=== PATIENT | female | born 1990 | race Caucasian/White ===

== ENCOUNTER 2021-08-24 16:08 | Outpatient (CLI) | payer OTHER, SELFPAY ==
--- NOTE | ~2021-08-24 | US_ITS ---
EXAMINATION: US OB /maternal detail DATE: 08/24/2021 17:23 INDICATION: screening survey TECHNIQUE: Multiple obstetric sonographic images performed. FINDINGS: No prior studies for comparison. There is a single living fetus in breech presentation. The placenta is posterior without placenta pr evia. Amniotic fluid is subjectively normal. cardiac activity and movement is noted with a heart rate of 129 beats per minute. The following anatomy was identified as normal: 4 chamber heart 3 vessel cord cord insertion kidneys urinary bladder stomach spine diaphragm ventricles cisterna magna cerebellum The following biometric data were obtained: BPD: 45mm corresponds to gestational age 19 weeks 4 days. Head circumference: 170 mm corresponds to gestational age 19 weeks 4 days. Abdominal circumference: 144 mm corresponds to gestational age 19 weeks 5 days. Femur length: 32 mm corresponds to gestational age 19 weeks 6 days. Head circumference to abdominal circumference ratio: 1.18 (normal range for expected gestational age is 1.08-1.26). Estimated weight: 309 grams +/- 46 grams using Hadlock method. IMPRESSION: 1: Single living intrauterine with an estimated gestational age of 19weeks 5days by current ultrasound measurements, with an EDC of 01/13/2022 in breech presentation. 2. Normal survey. Reviewed, dictated and finalized at location A. RUMENTATION ENGINEERING TECHNICIAN IMPRESSION: 1: Single living intrauterine with an estimated gestational age of 19 weeks 5days by current ultrasound measurements, with an EDC of 01/13/2022 in javier ech presentation. 2. Normal survey.
== END 2021-08-24 16:09 | disposition home or self-care (01) ==
LOC: ANHIMG 16:13
PROVIDERS: PCP Family Medicine; Visit Provider Obstetrics & Gynecology
DX: Z36.9 Encounter for antenatal screening, unspecified (principal); Z3A.19 19 weeks gestation of pregnancy
CPT/HCPCS: 76805

== ENCOUNTER 2021-10-30 15:58 | Outpatient (CLI) | payer OTHER, SELFPAY ==
--- NOTE | ~2021-10-30 | US_ITS ---
EXAMINATION: US OB follow up DATE: 10/30/2021 17:28 INDICATION: Obesity in . TECHNIQUE: Real-time ultrasound of the pelvis was performed. COMPARISON: Ultrasound 08/24/2021 FINDINGS: There is a single living fetus in vertex presentation. The placenta is fundal and posterior. h eart rate is 129 beats per minute (bpm). The amniotic fluid index is 11.9 cm, which is normal. The following biometric data were obtained: Biparietal diameter (BPD): 7.6 cm; head circumference (HC): 28.0 cm; abdominal circumference (AC): 26 .1 cm; femur length (FL): 5.7 cm. These measurements are concordant. Estimated weight is 1533 g +/- 230 g, which correlates with the 85th percentile when 01/16/22 is used as estimated date of delivery. As single measurements, these parameters are each equal to the following estimated gestational ages: BPD: 30 weeks 5 days. HC: 30 weeks 5 days. AC: 30 weeks 2 days. FL: 30 weeks 0 days. estimated gestational age based solely on measurements from this exam is 30 weeks 3 days +/- 2 weeks 1 days. IMPRESSION: 1. Single living fetus in vertex presentation. 2. Estimated weight is 1533 g +/- 230 g, which correlates with the 85th percentile when 2 is used as estimated date of delivery. Reviewed, dictated and finalized at location A. IMPRESSION: 1. Single living fetus in vertex presentation. 2. Estimated weight is 1533 g +/- 230 g, which correlates with the 85th percentile when 01/16/22 is used as estimated date of delivery.
== END 2021-10-30 15:59 | disposition home or self-care (01) ==
LOC: ANHIMG 16:07
PROVIDERS: PCP Family Medicine; Visit Provider Obstetrics & Gynecology
DX: O99.210 Obesity complicating pregnancy, unspecified trimester (principal)
CPT/HCPCS: 76816

== ENCOUNTER 2021-12-02 16:05 | Outpatient (CLI) | payer OTHER, SELFPAY ==
--- NOTE | ~2021-12-02 | US_ITS ---
EXAMINATION: US OB follow up DATE: 12/02/2021 16:48 INDICATION: Large for gestational age. TECHNIQUE: Real-time transabdominal obstetric ultrasound. FINDINGS: Comparison to multiple prior studies sequentially, with oldest reviewed study dated 022. There is a single living fetus in vertex presentation. The placenta is posterior without placenta pr evia. ROSA M is normal measuring 9.9 cm (normal range for gestational age is 8.1-24.8 cm). cardiac activity and movement is noted with a heart rate of 1:30 beats per minute. The amniotic fluid volume is normal. The following biometric data were obtained: BPD: 85mm corresponds to gestational age 34 weeks 2 days. Head circumference: 310mm corresponds to gestational age 34 weeks 4 days. Abdominal circumference: 320mm corresponds to gestational age 35 weeks 6 days. Femur length: 66mm corresponds to gestational age 33 weeks 6 days. Estimated weight: 2576 ggrams +/- 386grams, 84.2% by Hadlock method.] IMPRESSION: 1. Single living intrauterine presentation with an estimated gestational age of 34 weeks 0 days by inititial ultrasound. EDC by initial ultrasound of 01/13/2022. Appropriate interval aimee wth. 2. Normal placenta. Reviewed, dictated and finalized at location B. IMPRESSION: 1. Single living intrauterine presentation with an estimated gestati onal age of 34 weeks 0 days by inititial ultrasound. EDC by initial ultrasound of 01/13/2022. Appropriate interval growth. 2. Normal placenta.
== END 2021-12-02 16:06 | disposition home or self-care (01) ==
LOC: ANHIMG 16:06
PROVIDERS: PCP Family Medicine; Visit Provider Obstetrics & Gynecology
DX: O99.213 Obesity complicating pregnancy, third trimester (principal); Z3A.34 34 weeks gestation of pregnancy
CPT/HCPCS: 76816

== ENCOUNTER 2022-12-29 15:12 | Outpatient (CLI) | payer OTHER, SELFPAY ==
[2022-12-29 19:15] LABS: Basophils Absolute Auto 0.1 K/mm3 (0.0-0.1); Basophils Percent Auto 0.7 % (0.2-1.2); Eosinophils Absolute Auto 0.2 K/mm3 (0-0.3); Eosinophils Percent Auto 2.1 % (0-4.4); Hematocrit 40.1 % (37.0-47.0); Hemoglobin 11.7 g/dL (12.0-15.0); Immature Granulocyte Absolute 0.02 K/mm3 (0.00-0.031); Immature Granulocyte Percent A 0.2 % (0-0.5); Lymphocytes Absolute Auto 1.85 K/mm3 (0.9-3.2); Lymphocytes Percent Auto 18.9 % (18.3-44.2); Mean Corpuscular HGB Conc 29.2 g/dl (32-36); Mean Corpuscular Hemoglobin 23.1 pg (26-34); Mean Corpuscular Volume 79.2 fl (80-100); Mean Platelet Volume 10.8 fl (7.4-10.4); Monocytes Absolute Auto 0.9 K/mm3 (0.1-0.6); Neutrophils Absolute Auto 6.8 K/mm3 (1.3-6.7); Neutrophils Percent Auto 69.1 % (45.5-73.1); Platelet Count Result 393 k/mm3 (150-375); Red Blood Count 5.06 M/mm3 (4.2-5.4); Red Cell Distribution Width 15.3 % (11.5-14.5); White Blood Count 9.8 K/mm3 (4.5-10.0)
[2022-12-29 19:48] LABS: Hemoglobin A1C 5.3 % (<5.7)
[2022-12-29 20:48] LABS: Platelet Estimate Increased (Adequate)
[2022-12-29 20:50] LABS: Anisocytosis 2+ (NORMAL); Hypochromasia 1+ (NORMAL); Schistocytes None Seen (NORMAL)
== END 2022-12-29 15:13 | disposition home or self-care (01) ==
LOC: ANHASCLAB 15:13 → ANHGOSHLAB 15:16
PROVIDERS: PCP Family Medicine; Visit Provider Nurse Practitioner Family
DX: R42 Dizziness and giddiness (principal); R79.89 Other specified abnormal findings of blood chemistry
CPT/HCPCS: 36415; 83036; 85025

== ENCOUNTER 2022-12-29 16:03 | Outpatient (CLI) | payer OTHER, SELFPAY ==
--- NOTE | ~2022-12-29 | XR_ITS ---
XR abdomen/kub 1V DATE: 12/29/2022 16:21 INDICATION: Bilateral abdominal, back pain TECHNIQUE: AP projection COMPARISON: None FINDINGS: There is a pinpoint calcification overlying the lower pole of each kidney suggesting mild b ilateral nephrolithiasis. There is approximately 2 mm calcification overlying the left pelvis which might be a calcified pelvic phlebolith; distal left ureteral or ureterovesical junction calculus is not excluded. Noncontrast CT abdomen pelvis examination would be more sensitive and accurate for detection of urinary tract calcu li. No visceromegaly is evident. The psoas shadows are intact. Surgical clips, right upper quadrant, likely due to cholecystectomy. No evidence of bowel obstruction. Osteitis pubis. IMPRESSION: Suspect small calcified calculus of the lower pole of each kidney 2 mm left pelvic calcification which may be due to pelvic phlebolith or distal ureteral or ureteroves ical junction calcified small calculus; noncontrast CT abdomen pelvis would be more sensitive and acc urate for detection of urinary tract calculi. Osteitis pubis Status post cholecystectomy Reviewed, dictated and finalized at Location A. Reviewed, dictated and finalized at location A. IMPRESSION: Suspect small calcified calculus of the lower pole of each kidney 2 mm left pelvic calcification which may be due to pelvic phlebolith or distal ureteral or ureterovesical junction calcified small calculus; noncontrast CT ab domen pelvis would be more sensitive and accurate for detection of urinary trac t calculi. Osteitis pubis Status post cholecystectomy
== END 2022-12-29 16:04 | disposition home or self-care (01) ==
LOC: ANHIMG 16:05
PROVIDERS: PCP Family Medicine; Visit Provider Nurse Practitioner Family
DX: M54.9 Dorsalgia, unspecified (principal); N20.0 Calculus of kidney; M86.8X8 Other osteomyelitis, other site
CPT/HCPCS: 36415; 74018; 83036; 85025

== ENCOUNTER 2023-01-21 00:10 | Day surgery (SDC) | payer OTHER, SELFPAY ==
--- NOTE | 2023-01-14 15:48 | SUR.PREOP ---
Report to the Outpatient Waiting Room, entrance under the green pavilion located off [facility], at time 0600 on date 01/21/23. Planned Procedure Time: 0730. Time changes happen often and if your time is changed the preop area will call you the afternoon before. - You and your visitor will be asked to self-screen and do not enter if you have any COVID symptoms. - A mask is optional within the hospital at this time. Patients may have clear liquids (water, carbonated beverages, clear teas, apple juice) until 3 hours prior to surgery with a maximum of 20 ounces. - No food from midnight until time of surgery - NO CLEAR LIQUIDS AFTER 0430 - Infants may have breast milk until 4 hours before surgery, formula 6 hours prior to surgery. - Children will be allowed to drink immediately following surgery. If applicable, please bring a bottle or sippy cup to assist with drinking. Juice, water, soda, and popsicles are readily available. For infants on formula, please bring formula the day of surgery. Pacifiers are allowed. Take the following medications with a SIP of water the morning of surgery: BUPROPION DO NOT STOP ANY OF YOUR OTHER PRESCRIPTION MEDICATIONS PRIOR TO SURGERY ?EXCEPT THE FOLLOWING Medications to discontinue per physician N/A Date to take last dose Please no make-up, nail cayman islander, hairspray, perfume, deodorant, or body powder the day of surgery. No jewelry (including any body piercings) or valuables the day of surgery, leave them at home. Please take a shower or bath the night before, or the morning of, surgery with an antibacterial soap. Wear comfortable, loose fitting clothing. Children are encouraged to wear pajamas. - Jewelry must be removed prior to entering the operating room. Rings and piercings that are not removed may be cut off. - The hospital will not accept responsibility for valuables. - Please leave all valuables, including medications, at home the day of surgery. If you are going home after surgery, a licensed motor pool driver must drive you home. - NO public transportation without another adult if you receive anesthesia. - We recommend that an adult stay with you for 24 hours following discharge. - We also recommend that you do not drive, make important decision, drink alcoholic beverages, or take any drugs that were not prescribed by your health care provider for at least 24 hours after your discharge time. For Pediatric surgeries, we recommend two adults accompany the child home. Follow any additional instructions given to you from your surgeon. If you or anyone in your household have experienced Covid symptoms in the past week, please notify your surgeon or the nurse liaison at the phone number below for possible testing. Telephone instructions given to PACO CARUSO and asked if any additional questions and then verbalized understanding. Patient advised to call surgeon office or pre surgery nurse liaison [phone] if any additional questions.
[2023-01-14 15:56] VITALS: BMI 38.3
--- NOTE | 2023-01-20 08:04 | WPDANESEPPF ---
Anes - Initial Pre Proc Eval Procedure: Operation Date: 01/21/23 07:30 Proposed Procedures p Diagnostic Laparoscopy Bilateral Salpingectomy - Coreen Mackay DO Date/Time: 01/20/23 08:04 Surgeon: Coreen Mackay DO Pre Op Diagnosis: desires surgical sterility Patient Data Age: 32 Gender: F Height: 1.65 m Weight: 104.5 kg Allergies Allergy/AdvReac Type Severity Reaction Status Date / Time sulfamethoxazole Allergy Rash Verified 01/14/23 16:00 [From Bactrim] trimethoprim [From Bactrim] Allergy Rash Verified 01/14/23 16:00 Home Medications Medication Instructions Recorded Confirmed Type bupropion HCl 300 mg 24 hr tablet, 300 mg PO QAM #30 tabs 12/31/22 01/14/23 Rx extended release (Wellbutrin XL) Patient hx anesthesia problems: none Family hx anesthesia problems: none Results Review: All pre-operative results and documents have been reviewed as part of the pre-operative evaluation. [facility] Past Medical History Medical History (Updated 01/21/23 @ 06:35 by Boni Beck DO) Anxiety Broken arm Childhood Cholecystectomy planned 2015 Fungal toenail infection KEVIN (obstructive sleep apnea) not diagnosed Renal calculi Surgical History Surgical History (Updated 01/20/23 @ 08:04 by Boni Beck DO) History of cholecystectomy History of tonsillectomy 1999 Family History Family History Grandparent Family history of malignant neoplasm Mother Diabetes mellitus Hypertension Father Diabetes mellitus Hypertension Depression Heart disease Cerebrovascular accident Social History Social History Years smoked: 7 Smoking status: Former smoker Second hand tobacco smoke exposure: No Smoking end date: 04/27/21 Substance use: never Substance use type: does not use Lack of Transportation: No Lack of Food: Never True Current Housing: I Have Housing Concerned About Future Housing: No Difficulty Paying Gas/Electric Bills: No Difficulty Paying for Meds: No Currently Unemployed: No Education: High School Diploma/GED Difficulty w/ Childcare or Family Care: No Living arrangements: with friend(s) Additional living arrangements comments: Boyfriend Occupation/Education: unemployed Gender identity (if verbalized by the patient): Female Sexual Orientation (if Verbalized by the Patient): Straight or Heterosexual Spiritual care concerns: No Anes - Eval Final PreProcedure Day of Procedure 01/20/23 08:04 Patient weight: obese Heart: regular rate and rhythm Lungs: clear to auscultation Airway: Mallampati scale class II Neurological: alert and oriented Last oral intake: >/= 8 hours ASA classification: II Emergent: no Anesthetic plan: proceed Anesthesia type and monitoring: general ETT and standard monitoring Results Review: All pre-operative results and documents have been reviewed as part of the pre-operative evaluation. Informed Consent: The patient's anesthetic plan and its attendant risks and benefits were discussed with the patient/family/POA. Questions were solicited and answers provided to the satisfaction of the patient/family/POA.
[2023-01-21] VITALS (9 sets, daily range): BP systolic 112–140; BP diastolic 54–78; PULSE 52–82; RESP 14–20; TEMP 36.6–36.8; O2SAT 95–100
[2023-01-21] MEDS: GABAPENTIN 300 MG CAPSULE PO (06:45)
[2023-01-21] MEDS: ACETAMINOPHEN 500 MG TABLET 1000 MG PO (06:45)
[2023-01-21] MEDS: LACTATED RINGERS 1,000 ML 30 ML IV CONT ×2 (06:56→08:48)
--- NOTE | 2023-01-21 07:35 | WPDHPUPDATE1 ---
History and Physical Update Update Date/Time: 01/21/23 07:35 History and Physical has been reviewed, including an updated exam of the patient. There are NO changes in the patient's condition. Risks, benefits, and alternatives have been discussed and questions answered. Patient agrees to proceed with procedure.
--- NOTE | 2023-01-21 07:35 | PM.IMHP ---
H&P: HPI History of Present Illness Date/Time: 01/21/23 07:35 Chief Complaint: I'm here to have my tubes out Narrative: Mervat is here desiring permanent sterilization with diagnostic laparoscopy, bilateral salpingectomy. Review of Systems Review of Systems: All systems reviewed & are unremarkable except as noted in HPI and below PMFSH Past Medical History Medical History (Updated 01/21/23 @ 07:36 by Coreen Mackay DO) Anxiety Broken arm Childhood Cholecystectomy planned 2015 Fungal toenail infection KEVIN (obstructive sleep apnea) not diagnosed Renal calculi Surgical History Surgical History (Updated 01/20/23 @ 08:04 by Boni Beck DO) History of cholecystectomy History of tonsillectomy 1999 Family History Family History Grandparent Family history of malignant neoplasm Mother Diabetes mellitus Hypertension Father Diabetes mellitus Hypertension Depression Heart disease Cerebrovascular accident Social History Social History Years smoked: 7 Smoking status: Former smoker Second hand tobacco smoke exposure: No Smoking end date: 04/27/21 Substance use: never Substance use type: does not use Lack of Transportation: No Lack of Food: Never True Current Housing: I Have Housing Concerned About Future Housing: No Difficulty Paying Gas/Electric Bills: No Difficulty Paying for Meds: No Currently Unemployed: No Education: High School Diploma/GED Difficulty w/ Childcare or Family Care: No Living arrangements: with friend(s) Additional living arrangements comments: Boyfriend Occupation/Education: unemployed Gender identity (if verbalized by the patient): Female Sexual Orientation (if Verbalized by the Patient): Straight or Heterosexual Spiritual care concerns: No Meds Home Medications and Allergies Home Medications Medication Instructions Recorded Confirmed Type bupropion HCl 300 mg 24 hr tablet, 300 mg PO QAM #30 tabs 12/31/22 01/14/23 Rx extended release (Wellbutrin XL) Allergies Allergy/AdvReac Type Severity Reaction Status Date / Time sulfamethoxazole Allergy Rash Verified 01/21/23 06:58 [From Bactrim] trimethoprim [From Bactrim] Allergy Rash Verified 01/21/23 06:58 Vital Signs Vital Signs - 24 hr 01/21/23 06:50 Temperature 36.8 C Pulse Rate 82 Respiratory Rate 14 Blood Pressure 128/78 Pulse Oximetry 100 Oxygen Delivery Room Air Exam Const: General: comfortable and no acute distress Eyes: General: appearance normal, both eyes and all related structures Resp: Effort & Inspection: normal respiratory effort Auscultation: clear to auscultation bilaterally Cardio: Rate: regular rate Rhythm: regular rhythm Skin: General skin exam: normal color and no rashes or lesions noted Wounds: no wounds Neuro: General: gait normal Speech: normal speech Motor exam (neuro): 5/5 motor strength present throughout Psych: Mental Status: mental status grossly normal Affect: normal affect Assessment and Plan Assessment and plan (1) Sterilization: Code(s): Z30.2 - Encounter for sterilization Status: Acute Plan diagnostic laparoscopy, bilateral salpingectomy
[2023-01-21] MEDS: BUPIVACAINE/EPINEPHRINE 0.25% 50 ML VIAL 10 ML INFILTRATE (08:15)
[2023-01-21] MEDS: ONDANSETRON INJ 4 MG/2 ML VIAL IV PUSH (08:36)
[2023-01-21] MEDS: fentaNYL CITRATE INJ (*CRX) 100 MCG/2 ML VIAL 25 MCG IV PUSH ×4 (08:44→08:55)
--- NOTE | 2023-01-21 09:04 | P.OP_ITS ---
Procedure Note - Detailed Date of Procedure 01/21/23 Pre-op Diagnosis desires surgical sterility Post-op Diagnosis Same Procedure Performed Diagnostic laparoscopy, bilateral salpingectomy, pelvic washings Surgeon Coreen Mackay DO Job Hand Jessica Anesthesia General Indications Desires permanent sterilization. Patient requested pelvic washings to rule out ovarian cancer. She is asymptomatic but worries about it since there is no prevenantive screening exam for it. Findings Normal appearing vulva and vaginal canal. Normal, medium sized cervix. Uterus sounded to 7 cm. Midplane, anteverted. Internally, there were some adhesions of the omentum in the RUQ. Liver normal. Bowels and pelvic organs unremarkable. Resolving corpus luteum cyst on the right ovary. Description of Procedure Patient was taken to the operating room where she was placed under general anesthesia. She was prepped and draped in the normal sterile fashion in the dorsal lithotomy position. No preoperative antibiotics were indicated. A time- out was performed. Speculum was placed in the vagina and the cervix was visualized. A long Allis clamp was used to grasp the cervix on the posterior aspect, the uterus was sounded to 7 cm. Cervix was sequentially dilated to accommodate a Kroner uterine manipulator. Once the manipulator was placed, the Allis and speculum were removed. Gloves were changed attention was then turned to the abdomen. Skin above the umbilicus was grasped with 2 penetrating towel clamps and the area was injected with local. A small incision was made and a Veress needle was introduced. The saline water drop test was performed to confirm intraperitoneal placement. The abdomen was then insufflated to a filling pressure of 15 mmHg. The Veress needle was then replaced with a 5 mm Optiview trocar which was inserted under direct visualization. Survey of the abdomen revealed no evidence of bowel or vascular injury upon entry. Patient was then placed in steep Trendelenburg position. Additional port sites in the right and left lower quadrants were identified, injected and incised. 5 mm trocars were introduced under direct visualization. The insufflation was dropped to 11 mmHg for patient comfort. Survey of the abdomen and pelvis revealed the above-mentioned findings. Irrigation was floated into the pelvis and suctioned out for cytology. Starting on the right side the tube was elevated and was cauterized and transected off using the LigaSure. The specimen was passed off through the assistant finance manager port. The procedure was repeated in an identical fashion on the left-hand side. Once the specimens were removed, the pedicles were reinspected and found to be hemostatic. Final picture was taken. Instruments were removed and the gas was allowed to escape. The trocars were removed. The incision sites were closed with 4-0 Monocryl in a subcuticular fashion covered with skin glue. The uterine manipulator was removed blood and fluid was wiped clean of the vaginal canal. The patient was taken to the recovery room in stable condition. All instrument and sponge counts were correct at the conclusion of the procedure. Estimated Blood Loss 5 IV Fluids 1,000 Drains No Packing No Pathology Yes Complications No immediate complications Condition Stable Disposition PACU
[2023-01-21] MEDS: oxyCODONE HCL (*CRX) 5 MG TAB IR PO (09:32)
== END 2023-01-21 10:05 | disposition home or self-care (01) ==
PROVIDERS: PCP Family Medicine; Visit Provider Obstetrics & Gynecology Gynecologic Oncology
PROC: (CPT 49320; principal; 2023-01-21 07:30)
DX: Z30.2 Encounter for sterilization (principal); F41.9 Anxiety disorder, unspecified; Z87.891 Personal history of nicotine dependence; E66.9 Obesity, unspecified; Z68.39 Body mass index [BMI] 39.0-39.9, adult
CPT/HCPCS: 58661; 88108; 88302; A9270; J1100; J2250; J2405; J2704; J2710; J3010; J7120

== ENCOUNTER 2023-07-14 08:20 | Outpatient (CLI) | payer OTHER, SELFPAY ==
[2023-07-14 12:47] LABS: Basophils Absolute Auto 0.1 K/mm3 (0.0-0.1); Basophils Percent Auto 0.9 % (0.2-1.2); Eosinophils Absolute Auto 0.3 K/mm3 (0-0.3); Eosinophils Percent Auto 3.2 % (0-4.4); Hematocrit 40.7 % (37.0-47.0); Hemoglobin 11.5 g/dL (12.0-15.0); Immature Granulocyte Absolute 0.03 K/mm3 (0.00-0.031); Immature Granulocyte Percent A 0.4 % (0-0.5); Lymphocytes Absolute Auto 2.13 K/mm3 (0.9-3.2); Lymphocytes Percent Auto 24.9 % (18.3-44.2); Mean Corpuscular HGB Conc 28.3 g/dl (32-36); Mean Corpuscular Hemoglobin 22.9 pg (26-34); Mean Corpuscular Volume 80.9 fl (80-100); Mean Platelet Volume 10.5 fl (7.4-10.4); Monocytes Absolute Auto 0.8 K/mm3 (0.1-0.6); Neutrophils Absolute Auto 5.3 K/mm3 (1.3-6.7); Neutrophils Percent Auto 61.6 % (45.5-73.1); Platelet Count Result 359 k/mm3 (150-375); Red Blood Count 5.03 M/mm3 (4.2-5.4); Red Cell Distribution Width 15.9 % (11.5-14.5); White Blood Count 8.6 K/mm3 (4.5-10.0)
[2023-07-14 13:17] LABS: Platelet Estimate Adequate (Adequate)
[2023-07-14 13:18] LABS: Anisocytosis 1+ (NORMAL); Hypochromasia 1+ (NORMAL); Schistocytes None Seen (NORMAL)
[2023-07-14 13:22] LABS: Alanine Aminotransferase 14 U/L (6-35); Albumin Level 3.9 g/dL (3.5-5.1); Alkaline Phosphatase 91 U/L (38-126); Anion Gap 5 mmol/L (8-16); Aspartate Amino Transferase 27 U/L (14-36); Bilirubin,Total 0.4 mg/dL (0.2-1.3); Blood Urea Nitrogen 8 mg/dL (7-17); Calcium 8.9 mg/dL (8.4-10.2); Carbon Dioxide 30 mmol/L (22-30); Chloride 103 mmol/L (98-107); Cholesterol 154 mg/dL (0-200); Estimated Glomerular Filt Rate > 60; Glucose 79 mg/dL (65-110); HDL Direct 40 mg/dL; Potassium 4.4 mmol/L (3.4-5.0); Sodium 138 mmol/L (137-145); Triglycerides 92 mg/dL (<150)
[2023-07-14 13:36] LABS: LDL Cholesterol Direct 91 mg/dL
[2023-07-14 16:46] LABS: Thyroid Stimulating Hormone Reflex 0.806 uIU/mL (0.465-4.68)
== END 2023-07-14 08:21 | disposition home or self-care (01) ==
LOC: ANHGOSHLAB 08:22
PROVIDERS: PCP Family Medicine; Visit Provider Family Medicine
DX: Z13.228 Encounter for screening for other metabolic disorders (principal); Z13.220 Encounter for screening for lipoid disorders; R53.83 Other fatigue; Z13.29 Encounter for screening for other suspected endocrine disorder
CPT/HCPCS: 36415; 80053; 80061; 84443; 85025

== ENCOUNTER 2023-07-21 16:21 | Outpatient (CLI) | payer OTHER, SELFPAY ==
--- NOTE | ~2023-07-21 | US_ITS ---
EXAMINATION: US thyroid DATE: 07/21/2023 16:45 INDICATION: Nontoxic goiter, unspecified. TECHNIQUE: Multiple ultrasound images of the thyroid were obtained. COMPARISON: None. FINDINGS: The right thyroid lobe measures 5.2 x 1.7 x 1.5 cm. The left thyroid lobe measures 4.9 x 1.5 x 1.9 c m. In the left thyroid lobe, there is a 6 mm solid, hypoechoic, wider than tall nodule with smooth m argin without echogenic foci (TI-RADS TR4). IMPRESSION: 1. Small thyroid nodule, likely not clinically significant. No follow-up is needed. Reviewed, dictated and finalized at location E. LLIGENCE OPERATIONS SPECIALIST IMPRESSION: 1. Small thyroid nodule, likely not clinically significant. No follow-up is nee ded.
== END 2023-07-21 16:22 | disposition home or self-care (01) ==
LOC: ANHIMG 16:23
PROVIDERS: PCP Family Medicine; Visit Provider Family Medicine
DX: E04.9 Nontoxic goiter, unspecified (principal)
CPT/HCPCS: 76536

== ENCOUNTER 2024-01-16 09:54 | Outpatient (CLI) | payer OTHER, SELFPAY ==
[2024-01-16 15:07] LABS: Iron 34 ug/dL (37-170)
[2024-01-16 15:16] LABS: Percent Iron Saturation 8 % (20-50)
[2024-01-16 15:43] LABS: Ferritin 7.51 ng/mL (6.24-137)
== END 2024-01-16 09:55 | disposition home or self-care (01) ==
LOC: ANHGOSHLAB 09:55
PROVIDERS: PCP Family Medicine; Visit Provider Student in an Organized Health Care Education/Training Program
DX: G25.81 Restless legs syndrome (principal)
CPT/HCPCS: 36415; 82728; 83540; 83550

== ENCOUNTER 2024-03-27 16:00 | Outpatient (CLI) | payer OTHER, SELFPAY ==
--- NOTE | ~2024-03-27 | US_ITS ---
EXAMINATION: US soft tissue buttock RT DATE: 03/27/2024 16:25 INDICATION: Contusion of lower back and pelvis, initial encounter. Right buttock lump for 2 months. TECHNIQUE: Multiple grayscale and Doppler ultrasound images of the right buttock were obtained. COMPARISON: None FINDINGS: In the right buttock, there is a 5.5 x 6.6 x 4.5 cm cystic mass with low-level echoes and t hick septations. IMPRESSION: 1. 6.6 cm cystic mass in right buttock. The differential diagnosis includes hematoma, abscess, and le ss likely neoplasm. Reviewed, dictated and finalized at location A. IMPRESSION: 1. 6.6 cm cystic mass in right buttock. The differential diagnosis includes hem atoma, abscess, and less likely neoplasm.
== END 2024-03-27 16:01 | disposition home or self-care (01) ==
LOC: ANHIMG 16:02
PROVIDERS: PCP Family Medicine; Visit Provider Family Medicine
DX: S30.0XXA Contusion of lower back and pelvis, initial encounter (principal); R22.2 Localized swelling, mass and lump, trunk
CPT/HCPCS: 76705

== ENCOUNTER 2024-09-20 08:54 | Outpatient (CLI) | payer OTHER, SELFPAY ==
--- OUTSIDE RECORDS SUMMARY | 2024-09-20 09:29 | XMS_ITS | Clinical Summary ---
Author Organization [facility] Address [address] [place] [address] Care Team Providers Care Talent Rep Name Role Phone Vicentejustin Omid [place] Primary Care Provider [phone] Allergies Active Allergy Reactions Criticality Noted Date Comments Sulfamethoxazole-Trimethoprim Rash Medium 2020 Medications vitamin, low iron, ( VITAMIN WITH IRON) 27-0.8 MG tablet Take 1 tablet by mouth daily. Active buPROPion XL (WELLBUTRIN XL) 300 MG 24 hr tablet Take 450 mg by mouth every morning. 3 Active ondansetron (ZOFRAN-ODT) 4 MG disintegrating tablet Take 1 tablet (4 mg total) by mouth every 8 (eight) hours as needed for Nausea. 20 tablet 3 Active ibuprofen (MOTRIN) 600 MG tablet Take 1 tablet (600 mg total) by mouth every 8 (eight) hours as needed for Pain. 20 tablet 3 Active baclofen (LIORESAL) 10 MG tablet Take 1 tablet (10 mg total) by mouth 3 (three) times daily as needed (Muscle spasm). 20 tablet 3 Active HYDROcodone-acetami nophen (NORCO) 5-325 MG tabletIndications:A cute Pain < 3 Day Supply Take 1 tablet by mouth every 6 (six) hours as needed for Pain. Indications : Acute Pain < 3 Day Supply 12 tablet 3 Active Active Problems Problem Noted Date Diagnosed Date (HHS/HCC) 01/01/2022 Gestational hypertension, third trimester (HHS/H CC) 01/01/2022 Immunizations Name Administration Dates Next Due Tdap (Generic) 10/26/2021 Family History Medical History Relation Comments Diabetes Father Hypertension Father Sleep Apnea Father Diabetes Mother Hypertension Mother Sleep Apnea Mother guillain barre Paternal Grandpartent Rheumatoid Arthritis Sister Relation Status Comments Father Alive Mother Alive Paternal Grandpartent Sister Alive Son Alive Social History Tobacco Use Types Packs/Day Years Used Date Smoking Tobacco: Former Cigarettes Q uit: 05/2021 Smokeless Tobacco: Never Tobacco Cessation:Counseling Given: Not Answered Alcohol Use Standard Drinks/Week Comments Yes 0 (1 standard drink = 0.6 oz pur e alcohol) occasionally Comments No Sex and Gender Information Value Date Recorded Sex Assigned at Not on file Legal Sex Female 5:14 PM CDT Gender Identity Not on file Sexual Orientation Not on file Last Filed Vital Signs Vital Sign Reading Time Taken Comments Blood Pressure 125/68 05/14/2024 11:00 AM BREAD DISTRIBUTOR Pulse 65 05/14/2024 11:00 AM BREAD DISTRIBUTOR Temperature 36.4 C (97.5 F) 05/14/2024 11:00 AM BREAD DISTRIBUTOR Respiratory Rate 18 05/14/2024 11:0 0 AM BREAD DISTRIBUTOR Oxygen Saturation 97% 05/14/2024 11: 00 AM BREAD DISTRIBUTOR Inhaled Oxygen Concentration - - Weight 108.9 kg (240 lb 1.3 oz) 05/14/2024 9:18 AM BREAD DISTRIBUTOR Height 165.1 cm (5' 5 ) 05/14/2024 9:18 AM BREAD DISTRIBUTOR Body Mass Index 39.95 05/14/2024 9:18 AM BREAD DISTRIBUTOR Plan of Treatment Health Maintenance Due Date Last Done Comments Cervical Cancer Screening Pa p Smear (Age 30 to 64) Every 3 Years 1988 Annual Physical 11/27/1991 Hepatitis C 2006 Hepatitis B Vaccines (1 of 3 - 19+ 3-dose series) 11/27/2007 Cervical Cancer Screening Pa p with HPV Testing (Age 30 to 64) Every 5 Years 2018 Cervical Cancer Screening with HPV 2018 COVID-19 Vaccine (2023-2 5 season) 2024 Influenza Adult (#1) 2024 DTaP, Tdap and Td Vaccines ( 2 - Td or Tdap) 10/27/2031 10/26/2021 HPV Vaccines Aged Out No longer eligi ble based on patient's age to complete this topic Meningococcal B Vaccine Aged Out No l onger eligible based on patient's age to complete this topic Meningococcal Vaccine Aged Out No willian amelia eligible based on patient's age to complete this topic Pneumococcal Vaccine: Pediat rics (0 to 5 Years) and At-Risk Patients (6 to 64 Years) Aged Out No longer eligi ble based on patient's age to complete this topic RSV Immunizations Under 20 Months Aged Out No longer eligible based on patient's age to complete this topic Insurance [employer] Advance Directives * Full Code (Latest Code Status on File) Date Activated Date Inactivated Comments 01/01/2022 5:23 AM 01/01/2022 7:43 PM * Full Code Date Activated Date Inactivated Comments 12/29/2021 2:46 PM 12/29/2021 5:21 PM * Full Code Date Activated Date Inactivated Comments 12/28/2021 11:39 AM 12/28/2021 4:02 PM * Full Code Date Activated Date Inactivated Comments 11/18/2021 8:10 PM 11/18/2021 10:43 PM Care Teams Talent Rep Relationship Specialty Start Date End Date Omid Davidson DO [facility] [facility] [address]ARTINE[place] [address] [place] [address] PCP - General FAMILY PRACTICE 06/27/22
--- OUTSIDE RECORDS SUMMARY | 2024-09-20 09:29 | XMS_ITS | Continuity of Care Document ---
Author Organization [facility], [id number] [facility] Address [address] [place] [address] Assessment No assessment recorded. Plan of Treatment Reminders Order Date Submit Date Provider Last Modified By Organization Details Last Modified Time Details Appointments ANNUAL- EST 15 2024 01:30P M ALEJA SUAREZ WHNP Not available Not available Not available Lab estradiol , serum 2024 025 [facility] ([facility]), [address], [place], [address], 09/20/2024 09:42:50 testoster one, total, serum 2024 025 [facility] ([facility]), [address], [place], [address], 09/20/2024 09:42:49 progester one, serum 2024 025 [facility] ([facility]), [address], [place], [address], 09/20/2024 09:42:49 Referral None recorded. Procedures None recorded. Surgeries None recorded. Imaging MAMMO, diagnosti c, digital, bilateral - L breast pain-shoo ting in nature x 3 weeks. maternal aunt dx breast ca <40yo, pt BRCA negative 2024 025 [facility] (Mammography) , [address], [place], [address], 09/19/2024 12:01:55 Medication Orders None recorded. Patient TargetsNo targets recorded. Patient Instructions Encounter Date Encounter Id Patient Instructions Last Modified By Organization Details Last Modified Time 09/19/2024 [id number] [email or web address] Not available 09/19/2024 12:25:58 Reason for Referral None Reported. Problems Name Problem SNOMED Code Status Onset Date Resolution Date Notes Provider Name and Address Organization Details Recorded Time Herpes zoster 6995471 Active 2024 Maryellen sosa, [place] - [facility] 5 16:39:54 Methicillin resistant Staphylococcu s aureus infection 401994736 Active 2024 Maryellen sosa, [place] - [facility] 5 16:40:10 SARS-CoV-2 Active 2024 Maryellen soas, [place] - [facility] 5 16:40:20 Transfusion of blood product Active 2024 Maryellen sosa, [place] - [facility] 5 16:40:30 Lack or loss of sexual desire 826244562 Active 2024 ALEJA SUAREZ MAHIN [address], [place], [place], [address], [facility] - [facility] 5 11:53:30 Pain of left breast 1608157367 Active 2024 ALEJA SUAREZ MAHIN [address], [place], [place], [address], [facility] - [facility] 5 11:56:59 Problem Notes None recorded. Procedures Surgical History Date Name Laterality Status Provider Name and Address Organization Details Recorded Time 07/28/19 21 Date of Last Pap Smear completed Maryellen Mc [facility] 09/17/2024 16:41:01 06/27/19 12 colposcopy completed Maryellen Mc [place] [facility] 09/17/2024 16:47:34 Cholecystectomy completed [facility] 09/17/2024 16:47:40 Tubal Ligation completed [facility] 09/19/2024 11:31:16 Imaging Results None recorded. Procedure Notes None recorded. Medical Equipment None Reported. Allergies Allergen ID Allergen Name Allergen Category Reaction Reaction Severity Criticality Documentation Date Start Date Code Code System Note Provider Name and Address Organization Details Recorded Time [id number] Bactrim medicatio n hives Not available Not available 09/17/2024 82430 9 RxNorm [facility] 16:36:59 425874 Substance with sulfonami de structure and antibacte rial mechanism of action (substanc e) medicatio n Not available Not available Not available 09/19/2024 02788 8003 SNOMED [facility] 11:31:00 Medications Name Sig Start Date Stop Date Status Note LastModified by Organization Details LastModified Time famotidine 20 mg tablet TAKE 1 TABLET BY MOUTH DAILY 09/19 completed Not Available Not Available Not Available venlafaxine 37.5 mg tablet TAKE 1 TABLET BY MOUTH DAILY 09/19 completed Not Available Not Available Not Available nitrofuranto in macrocrystal 100 mg capsule TAKE 1 CAPSULE BY MOUTH EVERY 12 HOURS FOR 5 DAYS 09/19 completed Not Available Not Available Not Available sertraline 25 mg tablet TAKE 1 TABLET BY MOUTH DAILY active Not Available Not Available No t Available omeprazole 20 mg capsule,laurie yed release TAKE 1 CAPSULE BY MOUTH DAILY active Not Available Not Available No t Available bupropion HCl XL 300 mg 24 hr tablet, extended release TAKE 1 TABLET BY MOUTH EVERY MORNING 09/19 completed Not Available Not Available Not Available bupropion HCl XL 150 mg 24 hr tablet, extended release TAKE 1 TABLET BY MOUTH EVERY MORNING active Not Available Not Available No t Available Vitals Date Recorded Body height Body mass index (BMI) Body weight Systolic blood pressure Diastolic blood pressure Provider Name and Address Organization Details Last Updated DateTime 09/19/2024 165.1 cm 44.6 kg/m2 559409.7 6 g 110 mm[Hg] 76 mm[Hg] Maryellen Alexandro [facility] 11:36:35 Social History Question Answer Notes LastModified by Organizat ion Details LastModified Time Tobacco Smoking Status Former Smoker Maryellen Alexandro [facility], [facility] 09/17/2024 16:47:17 Do You Have An Advance Directive? No [email or web address] Information not available 09/19/2024 What Is Your Level Of Alcohol Consumption? Occasional [email or web address] Information not available 09/17/2024 How Many Times Per Week Do You Consume Alcohol? 1-2 Times Per Week Information not available 09/17/2024 If You Are , What Was Your Level Of Alcohol Consumption Prior To ? None [email or web address] Information not available 09/19/2024 How Many Years Have You Consumed Alcohol? 17 [email or web address] Information not available 09/19/2024 What Is Your Level Of Caffeine Consumption? Occasional [email or web address] Information not available 09/19/2024 Are You Currently Employed? No Information not available 09/19/2024 What Type Of Diet Are You Following? REGULAR [email or web address] Information not available 09/19/2024 What Is Your Relationship Status? Single [email or web address] Information not available 09/17/2024 At What Age Did You Start Smoking Tobacco? 15 [email or web address] Information not available 09/19/2024 How Much Tobacco Do You Smoke? No Information not available 09/19/2024 Do You Use Any Illicit Or Recreational Drugs? No Information not available 09/17/2024 Sex: Unknown Functional Status None recorded. Mental Status None recorded. Family History Relationship Description Onset Age of this Age Resolved Age Notes LastModified by Organization Details LastModified Time Maternal Grandfather Malignant tumor of prostate [email or web address] Not available 2024 11:31:04 Maternal Grandfather Heart disease Not available 2024 16:45:31 Maternal Grandfather Hypertensive disorder [email or web address] Not available 2024 11:31:04 Maternal Grandfather Myocardial infarction Not available 09/19 11:31:04 Maternal Grandmother Malignant tumor of gallbladder [email or web address] Not available 08/26 11:31:04 Maternal Grandmother Malignant tumor of breast [email or web address] Not available 2024 16:45:14 Maternal Grandmother Hypertensive disorder [email or web address] Not available 2024 11:31:04 Maternal Grandmother Heart disease [email or web address] Not available 2024 11:31:04 Paternal Grandmother Malignant neoplasm of brain [email or web address] Not available 2024 11:31:04 Mother Diabetes mellitus [email or web address] Not available 2024 16:44:37 Father Diabetes mellitus [email or web address] Not available 2024 16:44:37 Father Hypertensive disorder [email or web address] Not available 2024 11:31:04 Father Anxiety disorder [email or web address] Not available 2024 11:31:04 Father Depressive disorder [email or web address] Not available 2024 11:31:04 Father Mental disorder [email or web address] Not available 2024 11:31:04 Paternal Aunt Malignant tumor of breast [email or web address] Not available 2024 11:31:04 Unspecified Relation Malignant tumor of breast [email or web address] Not available 2024 11:31:04 Medical History No medical history recorded. Gynecological History Statement/Question Response 14 History of PCOS N Flow Moderate History of Fibroids N Date of LMP 09/10/2024 History of Infertility N History of Vulvar Dysplasia N Current Control Method: Other History of Cervical Dysplasia N Duration of Flow (days) 6 History of Recurrent Ovarian Cysts Y Age at first intercourse 15 History of Endometriosis N Sexually Active? Y History of Dysmenorrhea N Menses Monthly Y Date of Last Pap Smear 07/28/2020 Sexual Problems? Y History of Sexually Transmitted Infectio n N Obstetrics History GPAL:G 2 P 2 0 0 2 Type Value Multiple Births 0 Full Term 2 Induced 0 Spontaneous 0 Premature 0 Living 2 Ectopics 0 Total 2 Immunizations Vaccine Type Date Status Note Provider Nam e and Address Organization Details Recorded Time Tdap 06/27/2021 completed Maryellen Mc [facility] 09/17/2024 16:38:35 Past Encounters Encounter ID Performer Location Encounter Start Date Encounter Closed Date Diagnosis/Indication Diagnosis SNOMED-CT Code Diagnosis ICD10 Code Diagnosis Note [id number] ALEJA EVERETTNP [id number] [address] [place] [address] 09/19/2024 11:30:19 09/19/2024 11:57:31 Lack or loss of sexual desire 098282253 F52.0 -requestin g lab testing-eddy s wellness panel ordered at PCP office but hasn't had drawn yet Pain of left breast 1010 415279 N64.4 -call to schedule mammogram Health Concerns Section Related Observation LastModified by Organization Detai ls LastModified Time None Recorded Concern Status LastModified by Organization Details LastModified Time None Recorded Payers Encounter Date Sequence Insurance Name Policy Number Policy Dangelo Covered Member ID Dangelo Member ID Guarantor Name 09/19/2024 1 [facility] (MEDICAID REPLACEMENT - HMO) Mervat Courtney [id number] Mervat Hershey Notes Date Note Type Note Provider Name and Address Organization Details Recorded Time 09/19/2024 text/html pt presents with c/o L breast pain x 3weeks. pt states pain is shooting in nature. denies any new bra, supplements, vitamins, exercises. drinks a coffee drink in the morning with 2 extra shots of espresso-states she's been doing this for a long time. was taking effexor for the last almost a year, also taking wellbutrin for over a year, just started taking sertraline 2 days ago-stopped effexor 2 days ago. c/o decreased sexual desire for around a year-started before starting medication. denies life stressors or relationship issues. states it is causing relationship issues- wants her to have hormones checked. -ashley SUAREZ [facility] [address] [facility] [address], [place], [address], [facility] 09/19/2024 12:27:35 OBGyn Episode No OBEpisode recorded.
--- OUTSIDE RECORDS SUMMARY | 2024-09-20 09:29 | XMS_ITS | Data Portability ---
Author Organization [facility], [id number] Address [address] [place] [address] Assessment No assessment recorded. Plan of Treatment Reminders Order Date Submit Date Provider Last Modified By Organization Details Last Modified Time Details Appointments ANNUAL- EST 15 2024 01:30P M ALEJA SUAREZ WHNP Not available Not available Not available Lab estradiol , serum 2024 025 [facility] ([facility]), [address], [place], [address], 09/20/2024 09:42:50 testoster one, total, serum 2024 025 [facility] ([facility]), [address], [place], [address], 09/20/2024 09:42:49 progester one, serum 2024 025 [facility] ([facility]), [address], [place], [address], 09/20/2024 09:42:49 Referral None recorded. Procedures None recorded. Surgeries None recorded. Imaging MAMMO, diagnosti c, digital, bilateral - L breast pain-shoo ting in nature x 3 weeks. maternal aunt dx breast ca <40yo, pt BRCA negative 2024 025 [facility] (Mammography) , [address], [place], [address], 09/19/2024 12:01:55 Medication Orders None recorded. Patient TargetsNo targets recorded. Patient Instructions Encounter Date Encounter Id Patient Instructions Last Modified By Organization Details Last Modified Time 09/19/2024 [id number] [email or web address] Not available 09/19/2024 12:25:58 Reason for Referral None Reported. Problems Name Problem SNOMED Code Status Onset Date Resolution Date Notes Provider Name and Address Organization Details Recorded Time Herpes zoster 7499309 Active 2024 Maryellen sosa, [facility] 5 16:39:54 Methicillin resistant Staphylococcu s aureus infection 802187017 Active 2024 Maryellen sosa, [facility] 5 16:40:10 SARS-CoV-2 Active 2024 Maryellen Mc [facility], [facility] 5 16:40:20 Transfusion of blood product Active 2024 Maryellen sosa, [facility] 5 16:40:30 Lack or loss of sexual desire 374084691 Active 2024 ALEJA JOHNSON [address], [place], [place], [address], [facility] 5 11:53:30 Pain of left breast 5304094405 Active 2024 ALEJA JOHNSON [address], [place], [place], [address], [facility] 5 11:56:59 Problem Notes None recorded. Procedures Surgical History Date Name Laterality Status Provider Name and Address Organization Details Recorded Time 07/28/19 21 Date of Last Pap Smear completed Maryellen Mc [facility] 09/17/2024 16:41:01 06/27/19 12 colposcopy completed Maryellen [facility] 09/17/2024 16:47:34 Cholecystectomy completed [facility] 09/17/2024 16:47:40 Tubal Ligation completed [facility] 09/19/2024 11:31:16 Imaging Results None recorded. Procedure Notes None recorded. Medical Equipment None Reported. Allergies Allergen ID Allergen Name Allergen Category Reaction Reaction Severity Criticality Documentation Date Start Date Code Code System Note Provider Name and Address Organization Details Recorded Time 619947 Bactrim medicatio n hives Not available Not available 09/17/2024 31072 9 RxNorm [facility] 16:36:59 826611 Substance with sulfonami de structure and antibacte rial mechanism of action (substanc e) medicatio n Not available Not available Not available 09/19/2024 13770 8003 SNOMED [facility] 11:31:00 Medications Name Sig Start Date Stop [...] Updated DateTime 09/19/2024 165.1 cm 44.6 kg/m2 948220.7 6 g 110 mm[Hg] 76 mm[Hg] Maryellen Mc [facility] for [facility] 11:36:35 Social History Question Answer Notes LastModified by Organizat ion Details LastModified Time Tobacco Smoking Status Former Smoker Maryellen Mc [facility] 09/17/2024 16:47:17 Do You Have An Advance Directive? No Information not available 09/19/2024 What Is Your Level Of Alcohol Consumption? Occasional [email or web address] Information not available 09/17/2024 How Many Times Per Week Do You Consume Alcohol? 1-2 Times Per Week [email or web address] Information not available 09/17/2024 If You Are , What Was Your Level Of Alcohol Consumption Prior To ? None [email or web address] Information not available 09/19/2024 How Many Years Have You Consumed Alcohol? 17 Information not available 09/19/2024 What Is Your Level Of Caffeine Consumption? Occasional [email or web address] Information not available 09/19/2024 Are You Currently Employed? No [email or web address] Information not available 09/19/2024 What Type Of Diet Are You Following? REGULAR [email or web address] Information not available 09/19/2024 What Is Your Relationship Status? Single [email or web address] Information not available 09/17/2024 At What Age Did You Start Smoking Tobacco? 15 [email or web address] Information not available 09/19/2024 How Much Tobacco Do You Smoke? No Information not available 09/19/2024 Do You Use Any Illicit Or Recreational Drugs? No [email or web address] Information not available 09/17/2024 Sex: Unknown Functional Status None recorded. Mental Status None recorded. Family History Relationship Description Onset Age of this Age Resolved Age Notes LastModified by Organization Details LastModified Time Maternal Grandfather Malignant tumor of prostate Not available 2024 11:31:04 Maternal Grandfather Heart disease [email or web address] Not available 2024 16:45:31 Maternal Grandfather Hypertensive disorder [email or web address] Not available 2024 11:31:04 Maternal Grandfather Myocardial infarction [email or web address] Not available 09/19 11:31:04 Maternal Grandmother Malignant tumor of gallbladder [email or web address] Not available 08/26 11:31:04 Maternal Grandmother Malignant tumor of breast [email or web address] Not available 2024 16:45:14 Maternal Grandmother Hypertensive disorder [email or web address] Not available 2024 11:31:04 Maternal Grandmother Heart disease [email or web address] Not available 2024 11:31:04 Paternal Grandmother Malignant neoplasm of brain [email or web address] Not available 2024 11:31:04 Mother Diabetes mellitus [email or web address] Not available 2024 16:44:37 Father Diabetes mellitus [email or web address] Not available 2024 16:44:37 Father Hypertensive disorder [email or web address] Not available 2024 11:31:04 Father Anxiety disorder [email or web address] Not available 2024 11:31:04 Father Depressive disorder [email or web address] Not available 2024 11:31:04 Father Mental disorder [email or web address] Not available 2024 11:31:04 Paternal Aunt Malignant tumor of breast [email or web address] Not available 2024 11:31:04 Unspecified Relation Malignant tumor of breast [email or web address] Not available 2024 11:31:04 Medical History No [...] Recorded Time Tdap 06/27/2021 completed Maryellen Mc [facility] 09/17/2024 16:38:35 Past Encounters Encounter ID Performer Location Encounter Start Date Encounter Closed Date Diagnosis/Indication Diagnosis SNOMED-CT Code Diagnosis ICD10 Code Diagnosis Note [id number] ALEJA SUAREZ MAHIN [id number] [facility] [address] [place] [address] 09/19/2024 11:30:19 09/19/2024 11:57:31 Lack or loss of sexual desire 251170453 F52.0 -requestin g lab testing-eddy s wellness panel ordered at PCP office but hasn't had drawn yet Pain of left breast 1010 179198 N64.4 -call to schedule mammogram Health Concerns Section Related Observation LastModified by Organization Detai ls LastModified Time None Recorded Concern Status LastModified by Organization Details LastModified Time None Recorded Advance Directives Directive N: Payers Encounter Date Sequence Insurance Name Policy Number Policy Dangelo Covered Member ID Dangelo Member ID Guarantor Name 09/19/2024 1 [facility] (MEDICAID REPLACEMENT - HMO) Mervat [place] [id number] Mervat [place] Notes Date Note Type Note Provider Name [...] wants her to have hormones checked. -ashley ALEJA JOHNSON [address], [place], [address], [place] [facility] 09/19/2024 12:27:35 OBGyn Episode No OBEpisode recorded.
[2024-09-20 19:28] LABS: Basophils Absolute Auto 0.1 K/mm3 (0.0-0.1); Eosinophils Absolute Auto 0.6 K/mm3 (0-0.3); Hematocrit 44.2 % (37.0-47.0); Immature Granulocyte Absolute 0.03 K/mm3 (0.00-0.031); Immature Granulocyte Percent A 0.4 % (0-0.5); Lymphocytes Absolute Auto 1.86 K/mm3 (0.9-3.2); Lymphocytes Percent Auto 23.5 % (18.3-44.2); Mean Corpuscular HGB Conc 31.7 g/dl (32-36); Mean Corpuscular Hemoglobin 27.8 pg (26-34); Mean Corpuscular Volume 87.9 fl (80-100); Mean Platelet Volume 10.6 fl (7.4-10.4); Monocytes Absolute Auto 0.7 K/mm3 (0.1-0.6); Monocytes Percent Auto 8.5 % (2.6-8.5); Neutrophils Absolute Auto 4.6 K/mm3 (1.3-6.7); Neutrophils Percent Auto 58.6 % (45.5-73.1); Platelet Count Result 317 k/mm3 (150-375); Red Blood Count 5.03 M/mm3 (4.2-5.4); White Blood Count 7.9 K/mm3 (4.5-10.0)
[2024-09-20 19:42] LABS: Alanine Aminotransferase 26 U/L (6-35); Albumin Level 4.1 g/dL (3.5-5.1); Alkaline Phosphatase 95 U/L (38-126); Anion Gap 7 mmol/L (4-12); Aspartate Amino Transferase 25 U/L (14-36); Bilirubin,Total 0.5 mg/dL (0.2-1.3); Blood Urea Nitrogen 11 mg/dL (7-17); Calcium 9.4 mg/dL (8.4-10.2); Carbon Dioxide 30 mmol/L (22-30); Chloride 102 mmol/L (98-107); Cholesterol 147 mg/dL (0-200); Estimated Glomerular Filt Rate > 60; Glucose 81 mg/dL (65-110); HDL Direct 40 mg/dL; Potassium 4.3 mmol/L (3.4-5.0); Sodium 139 mmol/L (137-145); Triglycerides 89 mg/dL (<150)
[2024-09-20 19:53] LABS: LDL Cholesterol Direct 86 mg/dL
[2024-09-20 20:14] LABS: Thyroid Stimulating Hormone 0.929 uIU/mL (0.465-4.680)
[2024-09-20 20:23] LABS: Iron 92 ug/dL (37-170)
[2024-09-20 20:33] LABS: Percent Iron Saturation 23 % (20-50)
== END 2024-09-20 08:55 | disposition home or self-care (01) ==
PROVIDERS: Family Medicine; PCP Nurse Practitioner; Visit Provider Nurse Practitioner
DX: D50.9 Iron deficiency anemia, unspecified (principal); E66.01 Morbid (severe) obesity due to excess calories; K21.9 Gastro-esophageal reflux disease without esophagitis; F41.9 Anxiety disorder, unspecified; E55.9 Vitamin D deficiency, unspecified
CPT/HCPCS: 36415; 80053; 80061; 82306; 82728; 83540; 83550; 84443; 85025

== ENCOUNTER 2024-10-04 08:36 | Outpatient (CLI) | payer OTHER, SELFPAY ==
--- OUTSIDE RECORDS SUMMARY | 2024-10-04 08:44 | XMS_ITS | Clinical Summary ---
Author Organization [facility] Address [address] [place] [address] Care Team Providers Care Lead Teacher Name Role Phone VicenteOmid anderson Primary Care Provider [phone] Allergies Active Allergy Reactions Criticality Noted Date [...] Comments Blood Pressure 125/68 05/14/2024 11:00 AM SUBWAY GUARD Pulse 65 05/14/2024 11:00 AM SUBWAY GUARD Temperature 36.4 C (97.5 F) 05/14/2024 11:00 AM SUBWAY GUARD Respiratory Rate 18 05/14/2024 11:0 0 AM SUBWAY GUARD Oxygen Saturation 97% 05/14/2024 11: 00 AM SUBWAY GUARD Inhaled Oxygen Concentration - - Weight 108.9 kg (240 lb 1.3 oz) 05/14/2024 9:18 AM SUBWAY GUARD Height 165.1 cm (5' 5 ) 05/14/2024 9:18 AM SUBWAY GUARD Body Mass Index 39.95 05/14/2024 9:18 AM SUBWAY GUARD Plan of Treatment Health Maintenance Due Date [...] 2018 COVID-19 Vaccine (2023-2 5 season) 2024 DTaP, Tdap and Td Vaccines ( [...] patient's age to complete this topic Insurance [place] Advance Directives * Full Code (Latest Code [...] 8:10 PM 11/18/2021 10:43 PM Care Teams Lead Teacher Relationship Specialty Start Date End Date Omid Davidson DO [address] [facility] [address] [place] [address] PCP - General FAMILY PRACTICE 06/27/22
[2024-10-30 14:09] VITALS: BMI 44.1
--- NOTE | 2024-10-30 14:09 | P.SLEEP_ITS ---
Sleep Study - Home Unattended Date of Study: 10/04/24 Ordering Provider: Bri Rosenthal NP Interpreting Provider: Radha Valdovinos, DO Home Sleep Study Type: Watch PAT Height: 1.65 m Weight: 120.202 kg Body Mass Index: 44.1 Neck Circumference (inches): 14.75 [place]: 1 Reason for Sleep Study Daytime hypersomnia Sleep History The patient is a 33-year-old female that had a sleep study ordered by her primary care for evaluation of sleep apnea. The patient occasionally awakens from sleep short of breath. She occasionally awakens at night with heartburn, belching or cough. She constantly snores loudly enough that others complain. She occasionally has trouble sleeping when she has a cold. She frequently wakes up gasping for air throughout the night. He frequently has breathing problems at night observed by herself or others. She rarely sweats excessively at night. She denies having heart palpitations or irregular heartbeats during the night. She occasionally falls asleep during the day but never while driving. She denies sleep paralysis and cataplexy. She denies having trouble at school or work due to sleepiness. She occasionally experiences vivid dreamlike scenes upon awakening or falling asleep. She denies feeling afraid of going to sleep. She rarely has nightmares. She occasionally remembers her dreams. She rarely has thoughts racing through her mind. She denies feeling sad or depressed. She occasionally has anxiety. She denies having muscular tension. She frequently notices parts of her body jerk. She constantly kicks during the night. She constantly has crawling and aching feelings in her legs and occasionally has leg pain during the night. She denies grinding her teeth during sleep denies awakening with morning jaw pain. She denies being bothered by pain during the day and denies being awakened by pain during the night. She rarely wakes up feeling stiff in the morning. She denies waking up with sore or achy muscles. She rarely wakes up with pain in the neck, spine and other joints. She goes to bed between 9-10 p.m. on weekdays and between 10-11 p.m. on the weekends. It takes her 30-40 minutes to fall asleep. She wakes up numerous times throughout the night to adjust her position. She wakes up at 7:30 a.m. on weekdays and between 7 and 8:00 a.m. on the weekends. She typically gets 7-8 hours of sleep per night. She will stay in bed for 20 minutes after waking up in the morning. She currently lives with her and 2 children. She denies consuming any caffeinated beverages within 2 hours of bedtime. She de nies engaging in physical exercise before bedtime. She will watch television before falling asleep. She will take naps in afternoon or the evening but they are not refreshing. She consumes 1 coffee with 2 extra is breasts 0 shots per day. She quit smoking cigarettes 2 years ago. She rarely consumes alcoholic beverages. She denies recreational drug use. [facility] Past Medical History Medical History KEVIN (obstructive sleep apnea) not diagnosed Renal calculi Fungal toenail infection Broken arm Childhood Anxiety Cholecystectomy planned 2015 Surgical History Surgical History H/O tubal ligation (~2022) History of cholecystectomy History of tonsillectomy 1999 Family History Family History Grandparent Family history of malignant neoplasm Mother Diabetes mellitus Hypertension Father Diabetes mellitus Hypertension Depression Heart disease Cerebrovascular accident Social History Social History Years smoked: 7 Smoking status: Former smoker Second hand tobacco smoke exposure: No Smoking end date: 04/27/21 Alcohol intake: current Drinks per week: 1 Substance use: never Substance use type: does not use Do You Feel Safe in your Home?: Yes Lack of Transportation: No Lack of Food: Never True Current Housing: I Have Housing Concerned About Future Housing: No Difficulty Paying Gas/Electric Bills: No Difficulty Paying for Meds: No Currently Unemployed: No Education: High School Diploma/GED Difficulty w/ Childcare or Family Care: No Living arrangements: with friend(s) Additional living arrangements comments: Boyfriend Occupation/Education: unemployed Gender identity (if verbalized by the patient): Female Sexual Orientation (if Verbalized by the Patient): Straight or Heterosexual Spiritual care concerns: No Medications Home Medications ?Medication ?Instructions ?Recorded ?Confirmed ?Type bupropion HCl 150 mg 24 hr tablet, 150 mg PO QAM #14 tabs 09/14/24 09/14/24 Rx extended release (Wellbutrin XL) ergocalciferol (vitamin D2) 1,250 1,250 mcg PO WEEKLY #8 caps 09/21/24 Rx mcg (50,000 unit) capsule omeprazole 20 mg capsule,delayed 20 mg PO DAILY #90 caps 10/16/24 Rx release sertraline 100 mg tablet 100 mg PO DAILY #90 tabs 10/16/24 Rx Sleep Procedure The sleep study was completed using [employer] a technically adequate device with seven channels: peripheral arterial tone, actigraphy, body position, snore, respiratory movement, pulse oximetry, sleep staging, and heart rate. Prior to using the device, the patient received verbal and written instructions for its application and was provided with the help desk phone number for additional telephonic instruction with 24-hour availability of qualified personnel to answer questions. The study was scored using CMS guidelines. Sleep Architecture The total recording time is 10 hrs, 0 min. The total sleep time is 8 hrs, 59 min. Sleep latency is 16 minutes. REM latency is 90 minutes. The patient had 11 episodes of waking. Sleep architecture shows 17.7% deep sleep, 66.7% light sleep, and (as % Total Sleep Time) showed NREM (Light 66.7%; Deep 17.7%), and a 15.6% stage REM. The patient spent 4.6% of total sleep time in the supine position. Sleep efficiency was 89.83. Respiratory Analysis The overall AHI (pAHI 4%:) is 2.0. The overall AHI (pAHI 3%:) is 8.9. The central AHI is 0.6. The AHI was 9.7 in NREM and 4.3 in REM sleep. The AHI was 44.2 in Supine and 7.2 in Non-supine sleep. Percent of Ronnie Cerna respirations is 0.0. Oximetry Data The oxygen desaturation index (CLIFF 4%:) is 2.7. The mean saturation is 96%, and the lowest saturation is 90%. Time spent with saturation < 88% is 0.0 minutes. Snoring Profile Snoring average intensity is 42 dB. The patient snored above 45 decibels for 88.8 minutes, 16.4% of sleep time. Cardiac Profile The average pulse rate is 67 beats per minutes. The lowest pulse rate is 47 bpm. The highest pulse rate reported is 100 bpm. Atrial fibrillation was not detected. Premature beats occur <0.1 per minute. Assessment and Plan Assessment and Plan (1) Sleep disturbances: Code(s): G47.9 - Sleep disorder, unspecified Status: Acute Assessment and Plan: The patient had an overall AHI 2.0 with desaturation down to 90%. This is not consistent with sleep disordered breathing. The patient's sleep history is highly suggestive of Restless Leg Syndrome. I recommend that the patient have a serum ferritin drawn for evaluation of iron deficiency anemia. If the patient has a serum ferritin less than 75 ng/mL, I recommend starting a daily iron supplement and a Vitamin C supplement for better absorption. If the serum ferritin is greater than 75 ng/mL, I recommend starting a dopamine agonist and titrating the dose until symptoms resolve. There are nonpharmacological methods to treat limb movements including daily exercise, stretching calf muscles before bed, avoiding excessive amounts of caffeine and alcohol, vitamin B supplementation, magnesium lotion massaged into legs before bed, and use of a weighted blanket. Once the patient's RLS symptoms improve significantly or resolve, I recommend repeating the home sleep test if she is still having daytime hypersomnia. Data The data obtained during this sleep study is adequate for interpretation. Certification This sleep study has been reviewed by a board certified sleep medicine physician.
== END 2024-10-05 10:20 | disposition home or self-care (01) ==
LOC: ANHCSM 08:37
PROVIDERS: PCP Nurse Practitioner; Visit Provider Nurse Practitioner
DX: G47.9 Sleep disorder, unspecified (principal)
CPT/HCPCS: 95800

== ENCOUNTER 2024-10-23 13:08 | Outpatient (CLI) | payer OTHER, SELFPAY ==
--- NOTE | ~2024-10-23 | MM_ITS ---
EXAMINATION: MM diagnostic evelin BI w vadim HISTORY: Left breast pain TECHNIQUE: 3-D tomosynthesis images of the left breast were performed and synthetic 2-D images were g enerated. CAD analysis was submitted and interpreted. COMPARISON: None BREAST PARENCHYMAL COMPOSITION:Not Dense. There are scattered areas of fibroglandular density. FINDINGS: Parenchymal pattern of both breasts is unremarkable. No suspicious mass lesion or distortio n. No suspicious microcalcification. IMPRESSION: No mammographic evidence for malignancy. BI-RADS Category 1: Negative Reviewed, dictated and finalized at location M.
--- OUTSIDE RECORDS SUMMARY | 2024-10-23 14:20 | XMS_ITS | Clinical Summary ---
Author Organization [facility] Address [address] [place] [address] Care Team Providers Care Videotape Recording Engineer Name Role Phone VicenteOmid anderson Primary Care Provider [phone] Allergies Active Allergy Reactions Criticality Noted Date [...] hypertension, third trimester (HHS/H CC) 01/01/2022 Immunizations Immunization Administration Dates Next Due Tdap (Generic) 10/26/2021 [...] Comments Blood Pressure 125/68 05/14/2024 11:00 AM BUSINESS OBJECTS ARCHITECT Pulse 65 05/14/2024 11:00 AM BUSINESS OBJECTS ARCHITECT Temperature 36.4 C (97.5 F) 05/14/2024 11:00 AM BUSINESS OBJECTS ARCHITECT Respiratory Rate 18 05/14/2024 11:0 0 AM BUSINESS OBJECTS ARCHITECT Oxygen Saturation 97% 05/14/2024 11: 00 AM BUSINESS OBJECTS ARCHITECT Inhaled Oxygen Concentration - - Weight 108.9 kg (240 lb 1.3 oz) 05/14/2024 9:18 AM BUSINESS OBJECTS ARCHITECT Height 165.1 cm (5' 5 ) 05/14/2024 9:18 AM BUSINESS OBJECTS ARCHITECT Body Mass Index 39.95 05/14/2024 9:18 AM BUSINESS OBJECTS ARCHITECT Plan of Treatment Health Maintenance Due Date [...] 5 Years) and At-Risk Patients (6 to 49 Years) Aged Out No longer eligi ble based on patient's age to complete this topic RSV Immunizations Under 20 Months Aged Out No longer eligible based on patient's age to complete this topic Insurance [place] Advance Directives * Full Code (Latest Code [...] 8:10 PM 11/18/2021 10:43 PM Care Teams Videotape Recording Engineer Relationship Specialty Start Date End Date Omid Davidson DO [address] [facility] [address] [place] [address] PCP - General FAMILY PRACTICE 06/27/22
--- OUTSIDE RECORDS SUMMARY | 2024-10-23 14:20 | XMS_ITS | Data Portability ---
Author Organization [facility], [id number] Address [address] [place] [phone] Assessment No assessment recorded. Plan of Treatment Reminders Order Date Submit Date Provider Last Modified By Organization Details Last Modified Time Details Appointments ANNUAL- EST 15 2024 01:30P M ALEJA SUAREZ WHNP Not available Not available Not available Lab estradi ol, serum 2024 025 [facility] ([facility]), [facility] [place], [place], [address], 09/20/2024 09:42:50 testost erone, total, serum 2024 025 [facility] ([facility]), [address], [place], [address], 09/20/2024 09:42:49 progest erone, serum 2024 025 [facility] ([facility]), [address] [place] [address] [address], [place], [address], 09/20/2024 09:42:49 Referral None recorde d. Procedures None recorde d. Surgeries None recorde d. Imaging MAMMO, diagnos tic, digital , bilater al - L breast pain-sh ooting in nature x 3 weeks. materna l aunt dx breast ca <40yo, pt BRCA negativ e [address] [facility] (Mammography) , [address], [place], [address], 10/03/2024 13:34:31 Medication Orders None recorde d. Patient TargetsNo targets recorded. Patient Instructions Encounter Date Encounter Id Patient Instructions Last Modified By Organization Details Last Modified Time 09/19/2024 [id number] [email or web address] Not available 09/19/2024 12:25:58 Reason for Referral None Reported. Results Created Date Observation Date Name Description Value Unit Range Abnormal Flag Note LastModifiedBy Organization Detail LastModifiedTime 09/20/1909/20/2024 TESTO STERO NE TOTAL testosterone total 30.60 NG/dL 8.00-4 8.00 Not Available [facility]) [address], [place], [address], 09/20/2024 09:42:48 09/20/1909/20/2024 PROGE STERO NE progesterone 0.15 NG/mL Proge stero ne Refer ence Range Healt hy women Folli cular phase 0.057 - 0.893 Ovula tion phase 0.121 - 12.0 Lutea l phase 1.83 - 23.9 Postm enopa use <0.05 - 0.126 Healt hy pregn ant women 1st trime ster 11.0 - 44.3 2nd trime ster 25.4 - 83.3 3rd trime ster 58.7 - 214 Not Available [facility] ([facility]) [address], [place], [address], 09/20/2024 09:42:49 09/20/1909/20/2024 ESTRA DIOL estradiol 46 pg/mL Estra diol Refer ence Range Healt hy women Folli cular phase 12.4 - 233 Ovula tion phase 41.0 - 398 Lutea l phase 22.3 - 341 Postm enopa use <5 - 138 Healt hy pregn ant women 1st trime ster 154 - 3243 2nd trime ster 1561 - 31095 3rd trime ster 8525 - >3000 0 Not Available [facility] ([facility]) [address], [place], [address], 09/20/2024 09:42:50 Result Notes None recorded. Problems Name Problem SNOMED Code Status Onset Date Resolution Date Notes Provider Name and Address Organization Details Recorded Time Herpes zoster 7252936 Active 2024 Maryellen sosa, [facility] 5 16:39:54 Methicillin resistant Staphylococcu s aureus infection 030427312 Active 2024 Maryellen sosa, [facility] 5 16:40:10 SARS-CoV-2 Active 2024 Maryellen Mc [facility], [facility] 5 16:40:20 Transfusion of blood product Active [facility] 5 16:40:30 Lack or loss of sexual desire 914075576 Active 2024 ALEJA JOHNSON [address] [facility] [address], [place], [place], [address], [facility] 5 11:53:30 Pain of left breast 5048461586 Active 2024 ALEJA JOHNSON [address] [facility] [address], [place], [address], [facility] 5 11:56:59 Problem Notes None recorded. Procedures Surgical History Date Name Laterality Status Provider Name and Address Organization Details Recorded Time 07/28/19 21 Date of Last Pap Smear completed Maryellen Mc [facility] 09/17/2024 16:41:01 06/27/19 12 colposcopy completed Maryellen Mc [facility] 09/17/2024 16:47:34 Cholecystectomy completed Maryellen Mc [facility] 09/17/2024 16:47:[address] [facility] 09/19/2024 11:31:16 Imaging Results None recorded. Procedure Notes None recorded. Medical Equipment None Reported. Allergies Allergen ID Allergen Name Allergen Category Reaction Reaction Severity Criticality Documentation Date Start Date Code Code System Note Provider Name and Address Organization Details Recorded Time 356504 Bactrim medicatio n hives Not available Not available 09/17/2024 29154 9 RxNorm [facility] 16:36:59 031788 Substance with sulfonami de structure and antibacte rial mechanism of action (substanc e) medicatio n Not available Not available Not available 09/19/2024 72876 8003 SNOMED [facility] 11:31:00 Medications Name Sig Start Date Stop [...] Updated DateTime 09/19/2024 165.1 cm 44.6 kg/m2 109923.7 6 g 110 mm[Hg] 76 mm[Hg] [facility] 11:36:35 Social History Question Answer Notes LastModified by Organizat ion Details LastModified Time Tobacco Smoking Status Former Smoker Maryellen sosa [place] - [facility] 09/17/2024 16:47:17 Do You Have An Advance Directive? No [email or web address] Information not available 09/19/2024 What Is Your Level Of Alcohol Consumption? Occasional [email or web address] Information not available 09/17/2024 How Many Times Per Week Do You Consume Alcohol? 1-2 Times Per Week [email or web address] Information not available 09/17/2024 If You Are , What Was Your Level Of Alcohol Consumption Prior To ? None [email or web address] Information not available 09/19/2024 How Many Years Have You Consumed Alcohol? 17 [email or web address] Information not available 09/19/2024 What Is Your Level Of Caffeine Consumption? Occasional [email or web address] Information not available 09/19/2024 Are You Currently Employed? No [email or web address] Information not available 09/19/2024 What Type Of Diet Are You Following? REGULAR [email or web address] Information not available 09/19/2024 What Is Your Relationship Status? Single Information not available 09/17/2024 At What Age Did You Start Smoking Tobacco? 15 [email or web address] Information not available 09/19/2024 How Much Tobacco Do You Smoke? No [email or web address] Information not available 09/19/2024 Do You Use Any Illicit Or Recreational Drugs? No [email or web address] Information not available 09/17/2024 Sex: Unknown Functional Status None recorded. Mental Status None recorded. Family History Relationship Description Onset Age of this Age Resolved Age Notes LastModified by Organization Details LastModified Time Maternal Grandfather Malignant neoplasm of prostate [email or web address] Not available 2024 11:31:04 Maternal Grandfather Heart disease [email or web address] Not available 2024 16:45:31 Maternal Grandfather Hypertensive disorder [email or web address] Not available 2024 11:31:04 Maternal Grandfather Myocardial infarction noiyiuk58 Not available 09/19 11:31:04 Maternal Grandmother Malignant tumor of gallbladder mtyjzjk48 Not available 08/26 11:31:04 Maternal Grandmother Malignant tumor of breast wfuwxyf69 Not available 2024 16:45:14 Maternal Grandmother Hypertensive disorder [email or web address] Not available 2024 11:31:04 Maternal Grandmother Heart disease [email or web address] Not available 2024 11:31:04 Paternal Grandmother Malignant neoplasm of brain xisiilx78 Not available 2024 11:31:04 Mother Diabetes mellitus tqqchre50 Not available 2024 16:44:37 Father Diabetes mellitus aoivuuw66 Not available 2024 16:44:37 Father Hypertensive disorder [email or web address] Not available 2024 11:31:04 Father Anxiety disorder [email or web address] Not available 2024 11:31:04 Father Depressive disorder [email or web address] Not available 2024 11:31:04 Father Mental disorder [email or web address] Not available 2024 11:31:04 Paternal Aunt Malignant tumor of breast [email or web address] Not available 2024 11:31:04 Unspecified Relation Malignant tumor of breast yuytltx95 Not available 2024 11:31:04 Medical History No [...] Details Recorded Time Tdap 06/27/2021 completed Maryellen sosa [place] [facility] 09/17/2024 16:38:35 Past Encounters Encounter ID Performer Location Encounter Start Date Encounter Closed Date Diagnosis/Indication Diagnosis SNOMED-CT Code Diagnosis ICD10 Code Diagnosis Note [id number] ALEJA JOHNSON [id number] [facility] [address] [place] [address] 09/19/2024 11:30:19 09/19/2024 11:57:31 Lack or loss of sexual desire 300846599 F52.0 -requestin g lab testing-eddy s wellness panel ordered at PCP office but hasn't had drawn yet Pain of left breast 1010 699044 N64.4 -call to schedule mammogram Health Concerns Section Related Observation LastModified by Organization Detai ls LastModified Time None Recorded Concern Status LastModified by Organization Details LastModified Time None Recorded Advance Directives Directive N: Payers Encounter Date Sequence Insurance Name Policy Number Policy Dangelo Covered Member ID Dangelo Member ID Guarantor Name 09/19/2024 1 [facility] (MEDICAID REPLACEMENT - HMO) Mervat [place] [id number] Mervat [place] Notes Date Note Type Note Provider Name [...] her to have hormones checked. -ashley SUAREZ [facility] [address] [facility] [facility] [address], [place], [address], [facility] 09/19/2024 12:27:35 OBGyn Episode No OBEpisode recorded.
== END 2024-10-23 13:09 | disposition home or self-care (01) ==
PROVIDERS: PCP Nurse Practitioner; Visit Provider Nurse Practitioner
DX: N64.4 Mastodynia (principal)
CPT/HCPCS: 77062; 77066; G0279

== ENCOUNTER 2025-03-20 13:17 | Outpatient (CLI) | payer OTHER, SELFPAY ==
--- OUTSIDE RECORDS SUMMARY | 2025-03-20 13:26 | XMS_ITS | Clinical Summary ---
Author Organization [facility] Address [address] [place] [address] Care Team Providers Care Stoner Out Name Role Phone VicenteOmid anderson Primary Care Provider [phone] Allergies Active Allergy Reactions Criticality Noted Date [...] Date (HHS/HCC) 01/01/2022 Gestational hypertension, third trimester ([facility]/H [facility]) 01/01/2022 Immunizations Immunization Administration Dates Next [...] Comments Blood Pressure 125/68 05/14/2024 11:00 AM BILLING MACHINE OPERATOR Pulse 65 05/14/2024 11:00 AM BILLING MACHINE OPERATOR Temperature 36.4 C (97.5 F) 05/14/2024 11:00 AM BILLING MACHINE OPERATOR Respiratory Rate 18 05/14/2024 11:0 0 AM BILLING MACHINE OPERATOR Oxygen Saturation 97% 05/14/2024 11: 00 AM BILLING MACHINE OPERATOR Inhaled Oxygen Concentration - - Weight 108.9 kg (240 lb 1.3 oz) 05/14/2024 9:18 AM BILLING MACHINE OPERATOR Height 165.1 cm (5' 5) 05/14/2024 9:18 AM BILLING MACHINE OPERATOR Body Mass Index 39.95 05/14/2024 9:18 AM BILLING MACHINE OPERATOR Plan of Treatment Health Maintenance Due Date Last Done Comments Cervical Cancer Screening Pa p Smear (Age 30 to 64) Every 3 Years 1988 Annual Physical 11/27/1991 Hepatitis C 2006 Hepatitis B Vaccines (1 of 3 - 19+ 3-dose series) 11/27/2007 HPV Vaccines (1 - 3-dose SCD M series) 11/27/2015 Cervical Cancer Screening Pa p with HPV Testing (Age 30 to 64) Every 5 Years 2018 Cervical Cancer Screening with HPV 2018 COVID-19 Vaccine ( - 2023-2 5 season) 2025 DTaP, Tdap and Td Vaccines ( 2 - Td or Tdap) 10/27/2031 10/26/2021 Meningococcal B Vaccine Aged Out No l [...] patient's age to complete this topic Insurance [place] Advance Directives * Full Code (Latest Code [...] 8:10 PM 11/18/2021 10:43 PM Care Teams Stoner Out Relationship Specialty Start Date End Date Omid Davidson DO [address] [place] [address] PCP - General FAMILY PRACTICE 06/27/22
[2025-03-20 19:22] LABS: Hematocrit 44.4 % (37.0-47.0); Hemoglobin 14.4 g/dL (12.0-15.0); Immature Granulocyte Percent A 0.5 % (0-0.5); Lymphocytes Absolute Auto 1.97 K/mm3 (0.9-3.2); Mean Corpuscular HGB Conc 32.4 g/dl (32-36); Mean Corpuscular Hemoglobin 27.8 pg (26-34); Mean Corpuscular Volume 85.7 fl (80-100); Nucleated Red Blood Cells Absolute Auto 0.000 K/mm3 (0.0-0.012); Nucleated Red Blood Cells Perc 0.0 % (0.0-0.2); Platelet Count Result 348 k/mm3 (150-375); Red Blood Count 5.18 M/mm3 (4.2-5.4); White Blood Count 9.2 K/mm3 (4.5-10.0)
[2025-03-20 19:30] LABS: Alanine Aminotransferase 28 U/L (6-35); Albumin Level 4.3 g/dL (3.5-5.1); Alkaline Phosphatase 95 U/L (38-126); Anion Gap 9 mmol/L (4-12); Aspartate Amino Transferase 33 U/L (14-36); Bilirubin,Total 0.6 mg/dL (0.2-1.3); Blood Urea Nitrogen 12 mg/dL (7-17); Calcium 9.0 mg/dL (8.4-10.2); Carbon Dioxide 27 mmol/L (22-30); Chloride 100 mmol/L (98-107); Cholesterol 176 mg/dL (0-200); Estimated Glomerular Filt Rate > 60; Glucose 84 mg/dL (65-110); HDL Direct 35 mg/dL; Potassium 4.0 mmol/L (3.4-5.0); Sodium 136 mmol/L (137-145); Total Protein 7.6 g/dL (6.3-8.2); Triglycerides 158 mg/dL (<150)
[2025-03-20 19:44] LABS: Hemoglobin A1C 5.3 % (<5.7)
[2025-03-20 20:06] LABS: Thyroid Stimulating Hormone 0.796 uIU/mL (0.465-4.680)
[2025-03-21 10:17] LABS: Ferritin 37.50 ng/mL (6.24-137)
[2025-03-22 09:09] LABS: ANA by IFA Rfx Titer/Pattern Negative (.)
== END 2025-03-20 13:18 | disposition home or self-care (01) ==
LOC: ANHGOSHLAB 13:18
PROVIDERS: PCP Nurse Practitioner; Visit Provider Nurse Practitioner
DX: M79.643 Pain in unspecified hand (principal); R53.83 Other fatigue; E55.9 Vitamin D deficiency, unspecified; E66.01 Morbid (severe) obesity due to excess calories; E61.1 Iron deficiency
CPT/HCPCS: 36415; 80053; 80061; 82306; 82728; 83036; 84443; 85025; 86038; 86430

== ENCOUNTER 2025-05-30 02:10 | Day surgery (SDC) | payer OTHER, SELFPAY ==
[2025-05-09 12:04] VITALS: BMI 44.1
--- OUTSIDE RECORDS SUMMARY | 2025-05-30 02:13 | XMS_ITS | Clinical Summary ---
Author Organization [facility] Address Formerly [facility] [place] [address] Care Team Providers Care Filer Helper Name Role Phone None, Provider MD Primary Care Provider Unavaila ble Allergies Active Allergy Reactions Criticality Noted Date Comments Sulfamethoxazole-Trimethoprim Rash Medium 2020 Medications vitamin, low iron, ( VITAMIN WITH IRON) 27-0.8 MG tablet Take 1 tablet by mouth daily. Active ondansetron (ZOFRAN-ODT) 4 MG disintegrating tablet Take 1 tablet (4 mg total) by mouth every 8 (eight) hours as needed for Nausea. 20 tablet 08/20/19 23 Active ibuprofen (MOTRIN) 600 MG tablet Take 1 tablet (600 mg total) by mouth every 8 (eight) hours as needed for Pain. 20 tablet 01/01/20 23 Active baclofen (LIORESAL) 10 MG tablet Take 1 tablet (10 mg total) by mouth 3 (three) times daily as needed (Muscle spasm). 20 tablet 01/01/20 23 Active HYDROcodone-acetam inophen (NORCO) 5-325 MG tabletIndications: Acute Pain < 3 Day Supply Take 1 tablet by mouth every 6 (six) hours as needed for Pain. Indications : Acute Pain < 3 Day Supply 12 tablet 01/01/20 23 Active sertraline (ZOLOFT) 100 MG tablet Take 1 tablet (100 mg total) by mouth daily. Active ferrous sulfate, 65 mg elemental, 325 (65 FE) MG tablet Take 2 tablets (650 mg total) by mouth daily with breakfast. Active famotidine (PEPCID) 20 MG tablet Take 1 tablet (20 mg total) by mouth 2 (two) times daily. Active buPROPion XL (WELLBUTRIN XL) 300 MG 24 hr tablet Take 450 mg by mouth every morning. 08/17/19 23 025 Discontinued Active Problems Problem Noted Date Diagnosed Date 01/01/2022 Gestational hypertension, third trimester 2021 Encounters Date Type Department Care Team Description 05/15/2025 Travel 05/14/2025 11:52 PM PIPE WASHER - 05/15/2025 4:06 AM PIPE WASHER Emergency [facility] Emergency Room [id number] [place] [address] Jonas Cordova MD Chest Pain Discharge Disposition: Home or Self Care (Routine Discharge) from Last 3 Months Immunizations Immunization Administration Dates Next Due Tdap [...] Information Value Date Recorded Sex Assigned at Female 05/15/2025 12:10 AM PIPE WASHER Legal Sex Female 5:14 PM CDT Gender Identity Female 05/15/2025 12:10 AM PIPE WASHER Sexual Orientation Not on file Last Filed Vital Signs Vital Sign Reading Time Taken Comments Blood Pressure 119/48 05/15/2025 3:00 AM PIPE WASHER Pulse 53 05/15/2025 3:00 AM PIPE WASHER Temperature 36.6 C (97.8 F) 05/15/2025 12:01 AM PIPE WASHER Respiratory Rate 22 05/15/2025 3:00 AM PIPE WASHER Oxygen Saturation 100% 05/15/2025 3:00 AM PIPE WASHER Inhaled Oxygen Concentration - - Weight 115.7 kg (255 lb) 05/15/2025 12:01 AM PIPE WASHER Height 165.1 cm (5' 5) 05/15/2025 12:01 AM PIPE WASHER Body Mass Index 42.43 05/15/2025 12:01 AM PIPE WASHER Plan of Treatment Health Maintenance Due Date [...] Every 5 Years 2018 Cervical Cancer Screening wi th HPV 2018 COVID-19 Vaccine ( - 2024-2 6 season) 2025 Influenza Adult (#1) 2025 06/10/2009 DTaP, Tdap and Td Vaccines ( 3 - Td or Tdap) 10/27/2031 10/26/2021, 02/12/2003 Hepatitis A Vaccines Aged Out No long er eligible based on patient's age to complete this topic Meningococcal B Vaccine Aged Out No l onger eligible based on patient's age to complete this topic Meningococcal Vaccine Aged Out No willian amelia eligible based on patient's age to complete this topic Pneumococcal Vaccine: Pediatrics (0 to 5 Years) and At-Risk Patients (6 to 49 Years) Aged Out No longer eligible b ased on patient's age to complete this topic RSV Immunizations Under 20 Months Aged Out No longer eligible b ased on patient's age to complete this topic Procedures Procedure Name Priority Date/Time Associated Diagnosis Comments TROPONIN, QUANT STAT 05/15/2025 3:06 AM PIPE WASHER LIPASE STAT 05/15/2025 1:16 AM PIPE WASHER TROPONIN, QUANT STAT 05/15/2025 1:16 AM PIPE WASHER COMPREHENSIVE METABOLIC PANEL STAT 05/15/2025 1:16 AM PIPE WASHER HC CBC AUTO W/AUTO DIFF STAT 05/15/2025 1:16 AM PIPE WASHER XR CHEST PORTABLE STAT 05/15/2025 12: 39 AM PIPE WASHER ECG 12-LEAD Routine 05/14/2025 11:56 PM PIPE WASHER from Last 3 Months Results * TROPONIN, QUANT (05/15/2025 3:06 AM PIPE WASHER) Only the most recent of2 resultswithin the time period is included. [facility] TROPONIN I HIGH SENSITIVITY 7 0 - 50 ng/L 05/15/2025 3:41 AM PIPE WASHER [facility] Comment: HIGH DOSES OF BIOTIN, TROPONIN-SPECIFIC AUTOANTIBODIES, AND ANTIBODY THERAPY CONTAINING HAMA MAY INTERFERE WITH THIS TEST RESULT. CORRELATION TO CLINICAL HISTORY AND PRESENTATION RECOMMENDED. BLOOD VENOUS BLOOD SPECIMEN / Unknown 05/15/2025 3:06 AM PIPE WASHER us Jonas Cordova MD LABORATORY Final Resul t Performing Organization Address [facility]/ZIP Co de Phone Number [facility] [address] [place] [address], [place] [phone] * LIPASE (05/15/2025 1:16 AM PIPE WASHER) [facility] LIPASE 39 16 - 77 UNITS/L 05/15/2025 1:48 AM PIPE WASHER [facility] BLOOD VENOUS BLOOD SPECIMEN / Unknown 05/15/2025 1:16 AM PIPE WASHER us Jonas Cordova MD LABORATORY Final Resul t Performing Organization Address City/[facility]/ZIP Co de Phone Number [facility] [address] [place] [address], [place] [phone] * (ABNORMAL) COMPREHENSIVE METABOLIC PANEL (05/15/2025 1:16 AM PIPE WASHER) [facility] GLUCOSE 103(H) 70 - 99 MG/DL 05/15/2025 1:48 AM [facility] BUN 11 7 - 18 MG/DL 05/15/2025 1:48 AM PIPE WASHER [facility] CREATININE S/P/B 0.81 0.55 - 1.02 MG/DL 05/15/2025 1:48 AM [facility] SODIUM S/P/B 137 136 - 145 MMOL/L 05/15/2025 1:48 AM [facility] POTASSIUM S/P/B 3.7 3.5 - 5.1 MMOL/L 05/15/2025 1:48 AM [facility] CHLORIDE S/P/B 101 100 - 108 MMOL/L 05/15/2025 1:48 AM [facility] CO2 30.0 21 - 32 MMOL/L 05/15/2025 1:48 AM [facility] CALCIUM S/P/B 9.8 8.5 - 10.1 MG/DL 05/15/2025 1:48 AM [facility] BILIRUBIN TOTAL S/P/B 0.3 0.2 - 1.2 MG/DL 05/15/2025 1:48 AM [facility] TOTAL PROTEIN S/P/B 6.8 6.4 - 8.2 G/DL 05/15/2025 1:48 AM [facility] ALBUMIN S/P/B 3.4 3.4 - 5.0 G/DL 05/15/2025 1:48 AM [facility] AST 16 15 - 37 U/L 05/15/2025 1:48 AM [facility] ALT 28 14 - 55 U/L 05/15/2025 1:48 AM [facility] ALKALINE PHOSPHATASE S/P/B 84 50 - 136 U/L 05/15/2025 1:48 AM [facility] ANION GAP 6.0 5 - 15 MMOL/L 05/15/2025 1:48 AM [facility] BUN CREATININE RATIO 13.6 6 - 26 05/15/2025 1:48 AM [facility] A/G RATIO 1.0 1.0 - 2.0 RATIO 05/15/2025 1:48 AM [facility] GFR ESTIMATE >90 >90 ML/MIN/1.7 3 M2 05/15/2025 1:48 AM [facility] Comment: NOTE: eGFR is not calculated for patients <18 years of age. This is an estimated GFR calculation using the new CKD EPI creatinine equation without race and so does not require a correction factor for race. This estimated GFR should not be used for calculating drug doses. BLOOD VENOUS BLOOD SPECIMEN / Unknown 05/15/2025 1:16 AM PIPE WASHER Jonas Cordova MD LABORATORY Final Resul t [facility] [address] [place] [address], * (ABNORMAL) CBC W/DIFF AUTOMATED (05/15/2025 1:16 AM PIPE WASHER) WBC 10.24 4.4 - 11.0 x10'3/uL 05/15/2025 1:47 AM [facility] RBC 4.83 4.50 - 5.10 x10'6/uL 05/15/2025 1:47 AM [facility] HGB 13.9 12.3 - 15.3 G/DL 05/15/2025 1:47 AM [facility] HCT 42.4 35.9 - 44.6 % 05/15/2025 1:47 AM [facility] MCV 87.8 80.0 - 96.0 FL 05/15/2025 1:47 AM [facility] MCH 28.8 25.3 - 30.9 PG 05/15/2025 1:47 AM [facility] MCHC 32.8 31.0 - 34.1 G/DL 05/15/2025 1:47 AM [facility] RDW 13.0 12.4 - 15.1 % 05/15/2025 1:47 AM [facility] PLT 295 151 - 353 x10'3/uL 05/15/2025 1:47 AM [facility] MPV 10.4 9.6 - 12.0 FL 05/15/2025 1:47 AM [facility] RBC MORPHOLOGY NORMAL 05/15/2025 1:47 AM [facility] PLT MORPH. NORMAL 05/15/2025 1:47 AM [facility] WBC MORPHOLOGY NORMAL 05/15/2025 1:47 AM [facility] LYMPHOCYTES % 23.7 15.8 - 45.0 % 05/15/2025 1:47 AM [facility] NEUTROPHILS % 61.8 42.1 - 71.9 % 05/15/2025 1:47 AM [facility] MONOCYTES % 9.8 5.7 - 12.5 % 05/15/2025 1:47 AM [facility] EOSINOPHILS 3.6 0.0 - 5.6 % 05/15/2025 1:47 AM [facility] BASOPHILS 0.5 0.0 - 1.3 % 05/15/2025 1:47 AM [facility] ABS. NEUTROPHILS 6.33(H) 1.40 - 6.00 x10'3/uL 05/15/2025 1:47 AM [facility] IMMATURE GRANS % 0.6(H) 0.0 - 0.5 % 05/15/2025 1:47 AM [facility] ABS. LYMPHOCYTES 2.43 0.80 - 4.70 x10'3/uL 05/15/2025 1:47 AM PIPE WASHER [facility] BLOOD VENOUS BLOOD SPECIMEN / Unknown 05/15/2025 1:16 AM PIPE WASHER Jonas Cordova MD LABORATORY Final Resul t [facility] [address] [place] [address], * XR CHEST PORTABLE (05/15/2025 12:39 AM PIPE WASHER) Anatomical Region Laterality Modality Chest Radiographic Amarilys ging 05/15/2025 12:5 7 AM PIPE WASHER Impressions 05/15/2025 12:58 AM PIPE WASHER IMPRESSION:===== Unremarkable one view chest; no radiographic evidence of acute/active cardiopulmonary disease. Referred By: Interpreted By: Yonathan Perry MD, 05/15/2025 12:57 AM Narrative 05/15/2025 12:58 AM PIPE WASHER [facility] [address] [facility] [place] [address] Examination: Chest x-ray 1 view Exam date/time: 05/15/2025 12:39 AM Reason For Exam: 34 female. Chest pain, midsternal radiating to throat Comparison: Chest x-ray 05/14/2024 and priors Technique: Portable AP view of the chest . Findings: Normal cardiac size. Trachea is normally positioned. Hilar and mediastinal contours are within normal limits. Pulmonary vasculature is normal. Lungs and pleural spaces are radiographically clear; No consolidation, effusion or pneumothorax seen. Upper abdomen is unremarkable. ===== Procedure Note Yonathan Perry MD - 05/15/2025 [address] [place] [address] Examination: Chest x-ray 1 view Exam date/time: 05/15/2025 12:39 AM Reason For Exam: 34 female. Chest pain, midsternal radiating to throat Comparison: Chest x-ray 05/14/2024 and priors Technique: Portable AP view of the chest . Findings: Normal cardiac size. Trachea is normally positioned. Hilar andmediastinal contours are within normal limits. Pulmonary vasculature isnormal. Lungs and pleural spaces are radiographically clear; Noconsolidation, effusion or pneumothorax seen. Upper abdomen is unremarkable. ===== IMPRESSION:===== Unremarkable one view chest; no radiographic evidence of acute/activecardiopulmonary disease. Referred By: Interpreted By: Yonathan Perry MD, 05/15/2025 12:57 AM Jonas Cordova MD GENERAL IMAGING Final Resul t * ECG 12 lead (05/14/2025 11:56 PM PIPE WASHER) ECG QT 410 [facility] ECG QTC 392 [facility] 05/14/2025 11:5 6 PM PIPE WASHER Narrative [facility] - 05/15/2025 2:04 PM PIPE WASHER [facility] Test Date: 2025-05-14 Pat Name: PACO CARUSO Department: 85 Room: EXAM 101 Gender: Female Observer [employer]: : 1990 Requested By: JONAS CORDOVA Order Number: [id number] Reading MD: Rohini Wheat Measurements Intervals [place] Rate: 54 P: 43 HI: 160 QRS: 24 QRSD: 100 T: 6 QT: 410 QTc: 392 Interpretive Statements SINUS BRADYCARDIA No previous ECG available for comparison WASHER Procedure Note Rohini Wheat MD - [facility] Date: 2025-05-14 Pat Name: PACO CARUSO Department: 85 Room: EXAM 101 Gender: Female Observer [employer]: : 1990 Requested By: JONAS CORDOVA Order Number: [id number] Reading MD: Rohini Wheat Measurements Intervals [place] Rate: 54 P: 43 HI: 160 QRS: 24 QRSD: 100 T: 6 QT: 410 QTc: 392 Interpretive Statements SINUS BRADYCARDIA No previous ECG available for comparison WASHER us Jonas Cordova MD ECG ORDERABLES Final Resul t [facility] from Last 3 Months Insurance [employer] Advance Directives * Full Code (Latest Code [...] 8:10 PM 11/18/2021 10:43 PM Care Teams Filer Helper Relationship Specialty Start Date End Date None, Provider, MD PCP - General UNKNOWN PHYSICIAN SPECIALTY 05/14/25
--- OUTSIDE RECORDS SUMMARY | 2025-05-30 02:13 | XMS_ITS | Data Portability ---
Author Organization [facility], [id number] Address [address] [place] [phone] Assessment No assessment recorded. Plan of Treatment Reminders Order Date Submit Date Provider Last Modified By Organization Details Last Modified Time Details Appointments ANNUAL- EST 15 2025 01:00P M ALEJA SUAREZ WHNP Not available Not available Not available Lab estradi ol, serum 2024 025 [facility] ([facility]), [address], [place], [address], 09/20/2024 09:42:50 testost erone, total, serum 2024 025 [facility] ([facility]), [address], [place], [address], 09/20/2024 09:42:49 progest erone, serum 2024 025 [facility] ([facility]), [address], [place], [address], 09/20/2024 09:42:49 Referral None recorde d. Procedures None recorde d. Surgeries None recorde d. Imaging MAMMO, diagnos tic, digital , bilater al - L breast pain-sh ooting in nature x 3 weeks. materna l aunt dx breast ca <40yo, pt BRCA negativ e 2024 025 [facility] (Mammography) , [address], [place], [address], 10/03/2024 13:34:31 Medication Orders Addyi 100 mg tablet 2024 025 [id number], [address], [place], [id number], 11/21/2024 14:49:45 Patient TargetsNo targets recorded. Patient Instructions Encounter Date Encounter Id Patient Instructions Last Modified By Organization Details Last Modified Time 09/19/2024 [id number] [email or web address] Not available 09/19/2024 12:25:58 Reason for Referral None Reported. Results Created Date Observation Date Name Description Value Unit Range Abnormal Flag Note LastModifiedBy Organization Detail LastModifiedTime 09/20/1909/20/2024 TESTO STERO NE TOTAL testosterone total 30.60 NG/dL 8.00-4 8.00 Not Available [facility] ([facility]) [address], [place], [address], 09/20/2024 09:42:48 09/20/1909/20/2024 PROGE STERO NE progesterone [...] ster 58.7 - 214 Not Available [facility] ([facility]) [address], [place], [address], 09/20/2024 09:42:49 09/20/19 25 09/20/2024 ESTRA DIOL estradiol 46 pg/mL Estra diol Refer ence Range Healt hy women Folli cular phase 12.4 - 233 Ovula tion phase 41.0 - 398 Lutea l phase 22.3 - 341 Postm enopa use <5 - 138 Healt hy pregn ant women 1st trime ster 154 - 3243 2nd trime ster 1561 - 73754 3rd trime ster 8525 - >3000 0 Not Available [facility] ([facility]) [address], [place], [address], 09/20/2024 09:42:50 10/24/19 25 10/23/2024 MAMMO , diagn ostic , digit al, bilat eral No observ ation record ed. [facility] [address], [place], [address], 11/06/2024 15:00:55 Result Notes None recorded. 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 770016502 Active 2024 Maryellen sosa, [facility] 5 16:40:10 SARS-CoV- 2 Active 2024 Maryellen sosa, [facility] 5 16:40:20 Transfusi on of blood product Active 2024 [facility] 5 16:40:30 Lack or loss of sexual desire 427287014 Active 2024 ALEJA SUAREZ [facility] [address], [place], [address] , [facility] 14:48:47 Pain of left breast 5344267155 Active 2024 ALEJA Browning DANIELA ALEX [address], [place], [address] , [facility] 11:56:59 Notes:*Problem Name: covid 1 9 in *ICD-10 Codes: *Problem Status: Active *Comments: covid 19 in , Startdate: '06/30/21'; Problem Notes None recorded. Procedures Surgical History Date Name Laterality Status Provider Name and Address Organization Details Recorded Time 10/24/19 25 Date of Last Mammogram completed Oneida Coello(TERM) [facility] 11/21/2024 14:30:02 07/28/19 21 Date of Last Pap Smear completed Oneida Coello(TERM) [facility] 11/21/2024 14:24:21 06/27/19 12 colposcopy completed Maryellen Mc [facility] 09/17/2024 16:47:34 Cholecystectomy completed Maryellen Mc [facility] 09/17/2024 16:47:40 Tubal Ligation completed Maryellen Mc [facility] 09/19/2024 11:31:16 Laparoscopic cholecystectomy completed Not Available [facility] 10/25/2024 16:22:00 Remove intrauterine device completed Not Available [facility] 10/25/2024 16:22:00 Intra juma contra (paragard) completed Not Available [facility] 10/25/2024 16:22:00 colposcopy completed Not Available [facility] 10/25/2024 16:22:00 Imaging Results None recorded. Procedure Notes None recorded. Medical Equipment None Reported. Allergies Allergen ID Allergen Name Allergen Category Reaction Reaction Severity Criticality Documentation Date Start Date Code Code System Note Provider Name and Address Organization Details Recorded Time 568656 Bactrim medicatio n hives Not available Not available 09/17/2024 58456 9 RxNorm Maryellen [facility] 16:36:59 710801 Substance with sulfonami de structure and antibacte rial mechanism of action (substanc e) medicatio n Not available Not available Not available 09/19/2024 99661 8003 [facility]ED [facility] [place] [facility] 11:31:00 Medications Name Sig Start Date Stop Date Status Note LastModified by Organization Details LastModified Time Iron (ferrous sulfate) 325 mg (65 mg iron) tablet Take 1 tablet every day by oral route. active Not Available Not Available No t Available sertralin e 100 mg tablet TAKE 1 TABLET BY MOUTH DAILY 11/21 completed Not Available Not Available Not Available famotidin e 20 mg tablet TAKE 1 TABLET BY MOUTH DAILY 09/19 completed Not Available Not Available Not Available venlafaxi ne 37.5 mg tablet TAKE 1 TABLET BY MOUTH DAILY 09/19 completed Not Available Not Available Not Available nitrofura ntoin macrocrys ulises 100 mg capsule TAKE 1 CAPSULE BY MOUTH EVERY 12 HOURS FOR 5 DAYS 09/19 completed Not Available Not Available Not Available sertralin e 25 mg tablet TAKE 1 TABLET BY MOUTH DAILY 11/21 completed Not Available Not Available Not Available omeprazol e 20 mg capsule,d elayed release TAKE 1 CAPSULE BY MOUTH DAILY active Not Available Not Available No t Available ergocalci ferol (vitamin D2) 1,250 mcg (50,000 unit) capsule TAKE 1 CAPSULE BY MOUTH WEEKLY FOR 8 WEEKS THEN TAKE 2000 UNITS DAILY active Not Available Not Available No t Available sertralin e 50 mg tablet Take 1 tablet every day by oral route. active Not Available Not Available No t Available bupropion HCl XL 300 mg 24 hr tablet, extended release TAKE 1 TABLET BY MOUTH EVERY MORNING 09/19 completed Not Available Not Available Not Available bupropion HCl XL 150 mg 24 hr tablet, extended release TAKE 1 TABLET BY MOUTH EVERY MORNING 11/21 completed Not Available Not Available Not Available magnesium active Not Available Not Hui ilable Not Available Addyi 100 mg tablet TAKE 1 TABLET BY MOUTH EVERY DAY AT BEDTIME active Addyi is DENIED, not covered Not Available Not Available Not Available Vitals Date Recorded Body height Body mass index (BMI) Body weight Systolic And Diastolic Provider Name and Address Organization Details Last Updated DateTime 09/19/2024 165.1 cm 44.6 kg/m2 709641.76 g 110/76 mm[Hg] Maryellen Mc [facility] 09/19/2024 11:36:35 Date Recorded Body height Body mass index (BMI) Body weight Systolic And Diastolic Provider Name and Address Organization Details Last Updated DateTime 11/21/2024 165.1 cm 35.9 kg/m2 87000.95 g 122/68 mm[Hg] Oneida Coello(TERM ) [facility] 11/21/2024 14:27:24 Social History Question Answer Notes LastModified by [employer] ion Details LastModified Time Tobacco Smoking Status [facility]2024 16:47:17 Do You Have An Advance Directive? No [email or web address] Information not available 09/19/2024 If You Are , What Was Your Level Of Alcohol Consumption Prior To ? None [email or web address] Information not available 09/19/2024 How Many Years Have You Consumed Alcohol? 17 [email or web address] Information not available 09/19/2024 What Is Your Level Of Caffeine Consumption? Occasional [email or web address] Information not available 09/19/2024 What Type Of Diet Are You Following? REGULAR [email or web address] Information not available 09/19/2024 What Is Your Relationship Status? Single [email or web address] Information not available 09/17/2024 At What Age Did You Start Smoking Tobacco? 15 Information not available 09/19/2024 How Much Tobacco Do You Smoke? No [email or web address] Information not available 09/19/2024 Sex: Unknown Functional Status Question Answer Note LastModified by Organizat ion Details LastModified Time How many times per week do you consume alcohol? 1-2 times per week [email or web address] Information not available 09/17/2024 Do you use any illicit or recreational drugs? No [email or web address] Information not available 09/17/2024 What is your level of alcohol consumption? Occasional [email or web address] Information not available 09/17/2024 Are you currently employed? No [email or web address] Information not available 09/19/2024 Mental Status None recorded. Family History Relationship Description Onset Age of this Age Resolved Age Notes LastModified by Organization Details LastModified Time Maternal Grandfather Malignant neoplasm of prostate [email or web address] Not available 2024 14:18:28 Maternal Grandfather Heart disease [email or web address] Not available 2024 16:45:31 Maternal Grandfather Hypertensive disorder [email or web address] Not available 2024 11:31:04 Maternal Grandfather Myocardial infarction [email or web address] Not available 09/19 11:31:04 Maternal Grandmother Malignant neoplasm of gallbladder [email or web address] Not available 10/26 14:18:28 Maternal Grandmother Malignant neoplasm of breast [email or web address] Not available 2024 16:45:14 Maternal Grandmother Hypertensive disorder [email or web address] Not available 2024 11:31:04 Maternal Grandmother Heart disease [email or web address] Not available 2024 11:31:04 Maternal Grandmother Family history of breast cancer Family histor y of breast cancer ow4 Not available 11/21/2024 14:18:28 Paternal Grandmother Malignant neoplasm of brain [email or web address] Not available 2024 14:18:28 Mother Diabetes mellitus [email or web address] Not available 2024 16:44:37 Father Diabetes mellitus [email or web address] Not available 2024 16:44:37 Father Hypertensive disorder [email or web address] Not available 2024 11:31:04 Father Anxiety disorder [email or web address] Not available 2024 11:31:04 Father Depressive disorder [email or web address] Not available 2024 11:31:04 Father Mental disorder [email or web address] Not available 2024 11:31:04 Paternal Aunt Malignant neoplasm of breast 4 Not available 2024 14:18:28 Unspecified Relation Malignant neoplasm of breast [email or web address] Not available 2024 11:31:04 Unspecified Relation Family history of breast cancer Family histor y of breast cancer Relati ve: 'Aunt' ; 4 Not available 11/21/2024 14:18:28 Paternal Grandfather History taken NOS Other of Guilla n beret syndro me 4 Not available 11/21/2024 14:18:28 Maternal Grandfather Malignant neoplastic disease Cancer mgf-pr ostate ,mgm-d ied 2020 of scar najera pgmarleni of brain cancer Not available 10/25/2024 17:31:35 Paternal Grandmother Malignant neoplastic disease Cancer mgf-pr ostate ,mgm-d ied 2020 of scar najera pgmarleni of brain cancer Not available 10/25/2024 17:31:36 Mother Hypertensive disorder High Blood Pressu re Not available 10/25/2024 17:31:36 Medical History Condition Response Hematology- Blood Transfusion Y ID- MRSA Y ID-Other Y Cancer- Genetic screening ID- Chicken Pox/Shingles Y Gynecological History Statement/Question Response Flow Moderate Date of Last Mammogram 10/23/2024 History of Fibroids N Date of LMP 09/10/2024 Current Control Method: Other History of Recurrent Ovarian Cysts Y Age at first intercourse 15 HPV Vaccine Not Completed Date of Last HPV Test 09/09/2022 12 History of PCOS N History of Infertility N History of Cervical Dysplasia N History of Vulvar Dysplasia N Duration of Flow (days) 6 Current Control Method Sterilizati on Age at Menarche 12 History of Endometriosis N Frequency of Cycle (Q days) 25 Sexually Active? Y History of Abnormal PAP Y History of Dysmenorrhea N Menses Monthly [...] Recorded Time Tdap 06/27/2021 completed Maryellen Mc [facility] 09/17/2024 16:38:35 Past Encounters Encounter ID Performer Location Encounter Start Date Encounter Closed Date Diagnosis/Indication Diagnosis SNOMED-CT Code Diagnosis ICD10 Code Diagnosis IMO Codes Diagnosis Note [id number] ADELA TOM [address], MD [id number] [facility] [address] [facility] [place] [address] 09/19/2024 11:30:19 09/19/2024 11:57:31 Lack or loss of sexual desire 492396271 F52.0 -requestin g lab testing-nunu shankar wellness panel ordered at PCP office but hasn't had drawn yet Pain of left breast 1010 641285 N64.4 -call to schedule mammogram [id number] ADELA TOM [address], MD [id number] [facility] [address] [place] [address] 11/21/2024 14:14:21 11/21/2024 14:52:56 Gynecologic examination 26952260 Z01.838 [id number] -f/u 1 year for annual CLERICAL ORDER FILLER exam Lack or lo ss of sexual desire 255101156 F52.0 [id number] 11/21/24-we will try to get addyi covered 09/19/24-re questing lab testing-nunu shankar wellness panel ordered at PCP office but hasn't had drawn yet Depression screening 171 333586 Z13.31 [id number] 11/21/24-sc ore 4 Health Concerns Section Related Observation LastModified by Organization Detai ls LastModified Time None Recorded Concern Status LastModified by Organization Details LastModified Time None Recorded Advance Directives Directive N: Payers Insurance Date Sequence Insurance Name Policy Number Policy Dangelo Covered Member ID Dangelo Member ID Guarantor Name 09/19/2024 1 [facility] - DUAL ELIGIBLE (MEDICARE REPLACEMENT/AD VANTAGE - HMO) [place] [id number] [place] 2024 1 [facility] (MEDICAID REPLACEMENT - HMO) [place] [id number] [place] 09/19/2024 1 [facility] - DOS ON OR AFTER 20 (MEDICAID REPLACEMENT - HMO) [place] [id number] Mervat [place] Notes Date Note Type Note Provider Name and Address Organization Details Recorded Time 5 text/html pt presents with c/o L breast [...] her to have hormones checked. -ashley SUAREZ MAHIN [address], [place], [address], [facility] 09/19/2024 12:27:35 5 text/html [facility] Annual Well-Women Visit Age 30-39Reported by PatientPreventive Health ScreeningsFor current medical history, patient reportsreviewed and documented. For last pap smear, patient [id number]-[id number].Contracep tionFor contraceptive method, patient reportssatisfied with current methodandcontraceptive method: patient sterilization.Sexually ActiveFor sexually active, patient reportshas decreased libidobut reportsyes: same partner.STI ScreenFor sti screen, patient reportsdeclines sti testing.Menstrual History/SymptomsFor menstrual cycle, patient reportsnormal menstrual cycle and flow.11/21/24 states she still has no sexual desire. discussed normal lab results from PCP and normal hormone labs with us. pt denies life stressors or trouble in relationship that may be causing the issue. pt thinks maybe her body image might play a part. would like to try medication to help with low libido. -ashley ALEJA SUAREZ MAHIN [address], [place], [address], [facility] 11/21/2024 15:56:28 OBGyn Episode Ob Episode Information Episode Created Date Number of Fetuses Patient Bloodtype Patient rh Status Prepregnancy Weight lbs Domestic Partner Domestic Partner Phone Father Name Public Works Technician Status 11/10/19 25 1 CLOSED Fetus Data First Name Last Name Admitted to NICU Weight (g) Sex Living Outcome Pediatric Complications Fetus ID Race Codes Race Delivery Type M [id number] Vaginal Herberth Calculation Initial Herberth Date Initial Exam Date Initial Exam Provider Initial Ultrasound Date Last Menstrual Period Date Ultra Sound Weeks Gestation 0 Eighteen To Twenty Week Herberth Update Ultra Sound Date Fundal Height At Umbil Quickening Date Ultra Sound Latest Weeks Gestation Final Herberth Confirmed By Final Herberth Confirmed Date Final Herberth Date Ultra Sound Latest Days Gestation 0 0 Menstrual History Last Menstrual Date Menses Monthly On Bcp Conception Prior Menses Frequency Hcg Plus Date Menarche Onset Age Delivery Information Delivery Date Delivery Type Labor Anesthesia Weeks Gestation Incision Type Labor Labor Length Hrs Delivered By Post Complications Tubal Sterilization Discharge Date Comments 9 Regional-Ep idural 37 false [place], no issues fetus_1_w eight_lbs : '7-2'; Discharge Information Feeding Method Contraceptive Method Maternal HG B and HCT Levels Ob Episode Information Episode Created Date Number of Fetuses Patient Bloodtype Patient rh Status Prepregnancy Weight lbs Domestic Partner Domestic Partner Phone Father Name Public Works Technician Status 11/10/19 25 1 CLOSED Fetus Data First Name Last Name Admitted to NICU Weight (g) Sex Living Outcome Pediatric Complications Fetus ID Race Codes Race Delivery Type M [id number] Vaginal Herberth Calculation Initial Herberth Date Initial Exam Date Initial Exam Provider Initial Ultrasound Date Last Menstrual Period Date Ultra Sound Weeks Gestation 0 Eighteen To Twenty Week Herberth Update Ultra Sound Date Fundal Height At Umbil Quickening Date Ultra Sound Latest Weeks Gestation Final Herberth Confirmed By Final Herberth Confirmed Date Final Herberth Date Ultra Sound Latest Days Gestation 0 0 Menstrual History Last Menstrual Date Menses Monthly On Bcp Conception Prior Menses Frequency Hcg Plus Date Menarche Onset Age Delivery Information Delivery Date Delivery Type Labor Anesthesia Weeks Gestation Incision Type Labor Labor Length Hrs Delivered By Post Complications Tubal Sterilization Discharge Date Comments 2 Regional-Ep idural 37 false SJB-RLA, Vivek fetus_1_w eight_lbs : '8lbs 3.2oz'; Discharge Information Feeding Method Contraceptive Method Maternal HG B and HCT Levels
[2025-05-30 06:58] VITALS: BP 123/73; PULSE 66; RESP 16; TEMP 36.4; O2SAT 99
[2025-05-30] MEDS: LACTATED RINGERS 1,000 ML 150 ML IV CONT (07:00)
[2025-05-30 07:01] LABS: BEDSIDEPREGUCG Negative (Negative)
--- NOTE | 2025-05-30 07:13 | WPDANESEPPF ---
Anes - Initial Pre Proc Eval Procedure: Operation Date: 05/30/25 08:15 Proposed Procedures p Esophagogastroduodenoscopy EGD - Jai Monzon MD Date/Time: 05/30/25 07:13 Surgeon: Jai Monzon MD Pre Op Diagnosis: GERD Patient Data Age: 34 Gender: F Height: 1.65 m Weight: 126.3 kg Last Vital Signs Temp 36.4 C L 05/30/25 06:58 Pulse 66 05/30/25 06:58 Resp 16 05/30/25 06:58 BP 123/73 05/30/25 06:58 Pulse Ox 99 05/30/25 06:58 O2 Del Method Room Air 05/30/25 06:58 Allergies Allergy/AdvReac Type Severity Reaction Status Date / Time Sulfa (Sulfonamide Allergy shallow Verified 05/30/25 06:57 Antibiotics) respirations sulfamethoxazole (From Allergy Rash Verified 05/30/25 06:57 Bactrim) trimethoprim (From Bactrim) Allergy Rash Verified 05/30/25 06:57 Home Medications ?Medication ?Instructions ?Recorded ?Confirmed ?Type polysaccharide iron complex 200 mg 200 mg PO DAILY 03/20/25 05/30/25 History iron capsule (EZFE 200) sertraline 100 mg tablet 100 mg PO DAILY #90 tabs 04/22/25 05/30/25 Rx famotidine 20 mg tablet 20 mg PO DAILY 05/09/25 05/30/25 History magnesium 250 mg tablet 250 mg PO DAILY 05/09/25 05/30/25 History Laboratory Tests 05/30/25 06:58 POC Urine HCG, Qual Negative (Negative) Patient hx anesthesia problems: none Family hx anesthesia problems: none Results Review: All pre-operative results and documents have been reviewed as part of the pre-operative evaluation. [facility] Past Medical History Medical History KEVIN (obstructive sleep apnea) not diagnosed Renal calculi Fungal toenail infection Broken arm Childhood Anxiety Cholecystectomy planned 2015 Surgical History Surgical History H/O tubal ligation (~2022) History of cholecystectomy History of tonsillectomy 1999 Family History Family History Grandparent Family history of malignant neoplasm Mother Diabetes mellitus Hypertension Father Diabetes mellitus Hypertension Depression Heart disease Cerebrovascular accident Social History Social History Years smoked: 7 Smoking status: Never smoker Second hand tobacco smoke exposure: No Smoking end date: 04/27/21 Alcohol intake: never Drinks per week: 1 Substance use: never Substance use type: does not use Lack of Transportation: No Lack of Food: Never True Current Housing: I Have Housing Concerned About Future Housing: No Difficulty Paying Gas/Electric Bills: No Difficulty Paying for Meds: No Currently Unemployed: No Education: High School Diploma/GED Difficulty w/ Childcare or Family Care: No Living arrangements: with family Additional living arrangements comments: Boyfriend Occupation/Education: unemployed Gender identity (if verbalized by the patient): Female Sexual Orientation (if Verbalized by the Patient): Straight or Heterosexual Spiritual care concerns: No Anes - Eval Final PreProcedure Day of Procedure 05/30/25 07:13 Patient weight: morbidly obese Heart: regular rate and rhythm Lungs: clear to auscultation Airway: Mallampati scale class III Neurological: alert and oriented Last oral intake: >/= 8 hours ASA classification: III Emergent: no Anesthetic plan: proceed Anesthesia type and monitoring: general GIVS and standard monitoring Results Review: All pre-operative results and documents have been reviewed as part of the pre-operative evaluation. Informed Consent: The patient's anesthetic plan and its attendant risks and benefits were discussed with the patient/family/POA. Questions were solicited and answers provided to the satisfaction of the patient/family/POA.
--- NOTE | 2025-05-30 07:41 | PM.HPGS ---
History of Present Illness History of Present Illness Consent: Risks, benefits, and alternatives have been discussed and questions answered. Patient agrees to proceed with procedure. Chief complaint: GERD Narrative: Mervat Valdez is a 34 year old female here for first egd, on pepcid because gerd Review of Systems Review of Systems: All systems reviewed & are unremarkable except as noted in HPI and below PMFSH Past Medical History Medical History KEVNI (obstructive sleep apnea) not diagnosed Renal calculi Fungal toenail infection Broken arm Childhood Anxiety Cholecystectomy planned 2015 Surgical History Surgical History H/O tubal ligation (~2022) History of cholecystectomy History of tonsillectomy 1999 Family History Family History Grandparent Family history of malignant neoplasm Mother Diabetes mellitus Hypertension Father Diabetes mellitus Hypertension Depression Heart disease Cerebrovascular accident Social History Social History Years smoked: 7 Smoking status: Never smoker Second hand tobacco smoke exposure: No Smoking end date: 04/27/21 Alcohol intake: never Drinks per week: 1 Substance use: never Substance use type: does not use Lack of Transportation: No Lack of Food: Never True Current Housing: I Have Housing Concerned About Future Housing: No Difficulty Paying Gas/Electric Bills: No Difficulty Paying for Meds: No Currently Unemployed: No Education: High School Diploma/GED Difficulty w/ Childcare or Family Care: No Living arrangements: with family Additional living arrangements comments: Boyfriend Occupation/Education: unemployed Gender identity (if verbalized by the patient): Female Sexual Orientation (if Verbalized by the Patient): Straight or Heterosexual Spiritual care concerns: No Meds Home Medications and Allergies Home Medications ?Medication ?Instructions ?Recorded ?Confirmed ?Type polysaccharide iron complex 200 mg 200 mg PO DAILY 03/20/25 05/30/25 History iron capsule (EZFE 200) sertraline 100 mg tablet 100 mg PO DAILY #90 tabs 04/22/25 05/30/25 Rx famotidine 20 mg tablet 20 mg PO DAILY 05/09/25 05/30/25 History magnesium 250 mg tablet 250 mg PO DAILY 05/09/25 05/30/25 History Allergies Allergy/AdvReac Type Severity Reaction Status Date / Time Sulfa (Sulfonamide Allergy shallow Verified 05/30/25 06:57 Antibiotics) respirations sulfamethoxazole (From Allergy Rash Verified 05/30/25 06:57 Bactrim) trimethoprim (From Bactrim) Allergy Rash Verified 05/30/25 06:57 Vital Signs Vital Signs - 24 hr 05/30/25 06:58 Temperature 97.5 F L Pulse Rate 66 Respiratory Rate 16 Blood Pressure 123/73 Pulse Oximetry 99 Oxygen Delivery Room Air Exam Const: General: comfortable, no acute distress and obese HENMT: Face/Nose/Sinus: Normal nares present Eyes: General: appearance normal, both eyes and all related structures Resp: Auscultation: clear to auscultation bilaterally Cardio: Rate: regular rate Rhythm: regular rhythm GI: Inspection: non-distended GI Palp: Yes Soft to palpation Skin: General skin exam: normal color Extrem: General: normal to inspection Psych: Mental Status: mental status grossly normal Assessment and Plan Assessment and plan (1) GERD (gastroesophageal reflux disease): Qualifiers: Esophagitis presence: esophagitis presence not specified Qualified Code(s): K21.9 - Gastro-esophageal reflux disease without esophagitis Code(s): K21.9 - Gastro-esophageal reflux disease without esophagitis Status: Acute Assessment and Plan: egd
--- NOTE | 2025-05-30 07:48 | S_PTH ---
PATIENT: Mervat Valdez LOC: [facility]#:[id number] AGE/SX: 34/F ROOM: RE05/30/[address]: Jai Monzon MD : [id number] BED: DIS: 05/30/2025 SPEC #: [id number] RECD: 05/30/25 08:08 STATUS: SKYLA REColt #: [id number] HAL: 05/30/25 07:[address]: Jai Monzon DEPT: [facility] Surgical RECD BY: [place] ENTERED: 05/30/25 08:09 SP TYPE: Surgical OTHR DR: Bri Rosenthal, ANGELINA Tissues: A - Gastric Biopsy B - Esophageal Biopsy Procedures: Hematoxylin and Eosin Stain Gross and Microscopic Level 4
[2025-05-30 07:49] VITALS: BP 94/48; PULSE 60; RESP 26; O2SAT 94
[2025-05-30 07:59] VITALS: BP 92/58; PULSE 57; RESP 24; O2SAT 98
[2025-05-30 08:09] VITALS: BP 106/70; PULSE 59; RESP 22; O2SAT 99
== END 2025-05-30 08:58 | disposition home or self-care (01) ==
PROVIDERS: Anesthesiology; PCP Nurse Practitioner; Referring Provider Nurse Practitioner; Visit Provider Internal Medicine Gastroenterology
PROC: 0DJ08ZZ Inspection of Upper Intestinal Tract, Via Natural or Artificial Opening Endoscopic (ICD-10-PCS; CPT 43239; principal; 2025-05-30 08:15)
DX: K21.00 Gastro-esophageal reflux disease with esophagitis, without bleeding (principal); F41.9 Anxiety disorder, unspecified; E66.01 Morbid (severe) obesity due to excess calories; Z68.42 Body mass index [BMI] 45.0-49.9, adult; Z98.890 Other specified postprocedural states; Z98.51 Tubal ligation status; Z90.49 Acquired absence of other specified parts of digestive tract; Z87.442 Personal history of urinary calculi; Z80.9 Family history of malignant neoplasm, unspecified; Z82.49 Family history of ischemic heart disease and other diseases of the circulatory system
CPT/HCPCS: 43239; 88305; J7120